=== PATIENT | male | born 1965 | race Caucasian/White ===

== ENCOUNTER 2016-10-07 07:11 | Inpatient (IN) | payer OTHER ==
[~2016-10-07] VITALS: Ht 185.4 cm; Wt 116.4 kg
[~2016-10-07 07:11] MED LIST: AMOX500C3 PO; ASCO10003 PO; ASPCH81 PO; ATOR10TA88 PO; CHOL100010 PO; CLON1TAB3 PO; EMPA1TAB; FLUO20CA20 PO; GLC/500 PO; INSUINJ4 SC; LISI20TA55 PO; METO50TA16 PO; MULT-506 PO
[2016-10-07] MEDS ORDERED: EMPA1TAB3 PO (07:39)
[2016-10-07] MEDS ORDERED: METF-382 PO (07:39)
[2016-10-07] MEDS ORDERED: ASPI81TA28 PO (07:39)
[2016-10-07] MEDS ORDERED: CHOL20009 PO (07:39)
[2016-10-07] MEDS ORDERED: INSDGI SC ×2 (07:39)
--- NOTE | 2016-10-07 07:47 | EMERGENCY ROOM VISIT NOTE ---
History Report prepared by Betzy: John Paul Bennett Under the Supervision of: Dr. Elizabeth Boudreaux M.D. First contact with patient: 07:31 Chief Complaint: INFECTION Stated Complaint: WEAK,LIGHTHEADED,LEFT GREAT TOE ULCER Nursing Triage Summary: Left great toe, open, draining since last night. c/o feeling weak this morning. History of Present Illness The patient is a 51 year old male with a history of diabetes who presents to the Emergency Room with complaints of a persistent draining wound of the left great toe since last night. The patient has also been febrile. The patient felt sluggish and weak when he woke up this morning. The generalized weakness became worse when he was at work this morning. The patient has a history of diabetic neuropathy. He has been diabetic for 12 years. He does follow up with wound care. The patient 's BSG was 109 when he woke up around 0530 this morning. The patient notes that he recently changed his medications, which has helped control his BSG. He was last on antibiotics in early August for an ulcer. The patient also has a history of hypertension. He is not a smoker. Source of History: patient Onset: last night Position: toe(s) (left great toe) Quality: other (draining wound) Timing: other (persistent) Associated Symptoms: + fevers, + weakness Review of Systems See HPI for pertinent positives & negatives. A total of 10 systems reviewed and were otherwise negative. Past Medical & Surgical Medical Problems: (1) Anxiety (2) Chest pain (3) Diabetes mellitus type II, uncontrolled (4) Dyslipidemia (5) Great toe amputation status (6) HTN (hypertension) (7) Wound cellulitis Family History Cancer Diabetes mellitus FH: heart attack Gallbladder disease Heart disease Hypertension Social History Smoking Status: Never Smoker Alcohol Use: occasionally Drug Use: none Marital Status: , in relationship Housing Status: lives with family, lives with significant other Occupation Status: employed Current/Historical Medications Scheduled Ascorbic Acid (Vitamin C), 1,000 MG PO DAILY Aspirin (Aspirin Ec), 81 MG PO DAILY Atorvastatin (Lipitor), 10 MG PO DAILY Cholecalciferol (Vitamin D), 2,000 INTER.UNIT PO DAILY Clonazepam (Klonopin), 1 MG PO HS PRN Cyanocobalamin (Vitamin B-12), 500 MCG PO QAM Empagliflozin (Jardiance), 25 MG PO DAILY Fluoxetine Hcl (Pmdd) (Fluoxetine), 20 MG PO QAM Insulin Glargine (Lantus), 42 UNITS SC QAM Insulin Glargine (Lantus), 38 UNITS SC QPM Lisinopril/Hctz (Prinzide 20-25MG), 1 TAB PO QAM Metformin Ext Rel (Glucophage Ext Rel), 1,000 MG PO BID Metoprolol Succinate (Metoprolol Succinate ER), 50 MG PO BID Multivitamin (Multivitamin), 1 TAB PO QAM Sulfamethoxazole-Trimethoprim (Smz-Tmp Ds), 1 TAB PO Q12 Allergies Coded Allergies: Peanut (Verified Allergy, Severe, ANAPHYLAXIS, 10/07/16) Physical Exam Vital Signs Date Time Temp Pulse Resp B/P Pulse Ox O2 Delivery O2 Flow Rate FiO2 10/07/16 10:28 37.9 82 18 119/73 96 Room Air 10/07/16 08:54 92 10/07/16 08:52 38.1 89 18 107/59 97 Room Air 10/07/16 07:15 38.3 98 18 124/75 98 Room Air Physical Exam Vital signs reviewed. General: Generally well-appearing male, in no significant distress. HEENT: No scleral icterus, PERRLA, neck supple. Atraumatic. Cardiovascular: Regular rate and rhythm, no extra sounds. Pulmonary: Clear to auscultation bilaterally, normal work of breathing. Abdomen: Soft, nontender, nondistended, positive bowel sounds. Musculoskeletal: Amputated right great toe. Left great toe with cellulitis over the nail bed, split callous to the dorsal surface of the toe with minimal drainage and some bleeding. Neurologic: Patient awake alert and oriented x 3 Skin: Warm, dry. Changes as above. Medical Decision & Procedures ER Provider Diagnostic Interpretation: X-ray results as stated below per interpretation by me and the radiologist: CHEST ONE VIEW PORTABLE CLINICAL HISTORY: Fever. COMPARISON STUDY: Chest radiograph December 04, 2015. FINDINGS: Lung volumes are normal. There is no pneumothorax or pleural effusion. Cardiac size is normal. Mediastinal contours are normal. There is no evidence of pulmonary edema. The appearance of the chest is unchanged. IMPRESSION: No acute cardiopulmonary findings. Electronically signed by: Matt Chua M.D. 10/07/2016 8:36 AM Dictated Date/Time: 10/07/2016 8:35 AM LEFT FOOT MIN 3 VIEWS ROUTINE CLINICAL HISTORY: Left great toe diabetic ulcer. Fever. COMPARISON: None. FINDINGS: The tarsometatarsal joints are intact. There is moderate soft tissue swelling of the medial aspect of the left great toe, greatest at the level of the interphalangeal joint. Soft tissue irregularity suggests an ulcer. There is no radiographic evidence of osteomyelitis within the left foot. Mild arthritis is noted within multiple articulations. IMPRESSION: Soft tissue swelling with an ulcer of the left great toe. No radiographic evidence of osteomyelitis. Electronically signed by: Matt Chua M.D. 10/07/2016 8:40 AM Dictated Date/Time: 10/07/2016 8:36 AM Laboratory Results Test 10/07/16 08:40 10/07/16 08:44 Erythrocyte Sedimentation Rate 21 mm/hr (0-14) Prothrombin Time 11.0 SECONDS (9.0-12.0) Prothromb Time International Ratio 1.0 (0.9-1.1) Magnesium Level 2.1 mg/dl (1.8-2.4) Total Bilirubin 1.5 mg/dl (0.2-1) Direct Bilirubin 0.3 mg/dl (0-0.2) Aspartate Amino Transf (AST/SGOT) 16 U/L (15-37) Alanine Aminotransferase (ALT/SGPT) 24 U/L (12-78) Alkaline Phosphatase 88 U/L (45-117) Total Protein 7.7 gm/dl (6.4-8.2) Albumin 3.8 gm/dl (3.4-5.0) Hepatitis C Antibody Screen NEG (NEG) Bedside Lactic Acid Venous 1.45 mmol/L (0.90-1.70) Date/Time Source Procedure Growth Status 10/07/16 08:50 Blood Blood Culture - Final NO GROWTH Complete 10/07/16 08:19 Drainage-Deep Toe Left 1 Gram Stain - Final Complete 10/07/16 08:19 Wound Culture - Final Staphylococcus Aureus Complete Laboratory results per my review. Medications Administered Medications (Trade) Dose Ordered Sig/Esther Route Start Time Stop Time Status Last Admin Dose Admin Sodium Chloride 1,000 ml @ 125 mls/hr Q8H STAT IV 10/07/16 08:11 10/07/16 14:13 DC 10/07/16 09:33 125 MLS/HR Sodium Chloride 500 ml @ 999 mls/hr Q31M STAT IV 10/07/16 08:11 10/07/16 08:41 DC 10/07/16 08:54 999 MLS/HR Vancomycin HCl/ Sodium Chloride (Vancomycin Inj/ Nss 500ml) 556 ml @ 200 mls/hr ONE STAT IV 10/07/16 08:11 10/07/16 10:57 DC 10/07/16 09:33 200 MLS/HR Piperacillin Sod/ Tazobactam Sod (Zosyn Iv) 4.5 gm NOW STAT IV 10/07/16 08:11 10/07/16 08:16 DC 10/07/16 08:56 4.5 GM Acetaminophen (Tylenol Tab) 650 mg NOW STAT PO 10/07/16 09:47 10/07/16 09:49 DC 10/07/16 09:55 650 MG ED Course 0740: Past medical records reviewed. The patient was evaluated in room B12b. A complete history and physical examination was performed. 0745: Incision & drainage performed. Please see procedural note above. 0811: Zosyn 4.5 gm IV, Vancomycin Hcl 2800 mg / NSS 556 ml @ 200 mls/hr, NSS 500 ml @ 999 mls/hr, NSS 1000 ml @ 125 mls/hr. 0946: Discussed the case with Marie Kay PA-C, [facility]. The patient will be evaluated. 0947: Tylenol 650 mg PO. Medical Decision Differential diagnosis: Cellulitis, osteomyelitis, diabetic wound, influenza, pneumonia, DVT, gangrene. This pt was evaluated and appeared to be in no distress. IV access was obtained and lab work was drawn. PT was placed on the personnel analyst. He was medicated with NSS, IV vancomycin and zosyn. A wound cx was sent after the wound was slightly unroofed. XR reveals no osteomyelitis at this time, although pt has elevated WBC, sed rate and CRP. Pt was d/w the hospitalist service for further management. Pt is aware of plan and agrees. Consults Time Called: [phone] Consulting Physician: Marie Kay PA-C, [facility] Returned Call: [phone]: Discussed the case with Marie Kay PA-C, [facility]. The patient will be evaluated. Impression Primary Impression: Diabetic foot ulcer Additional Impressions: Cellulitis Fever Scribe Attestation The scribe's documentation has been prepared under my direction and personally reviewed by me in its entirety. I confirm that the note above accurately reflects all work, treatment, procedures, and medical decision making performed by me. Departure Information Dispostion Being Evaluated By Hospitalist Prescriptions Cyanocobalamin (Vitamin B-12) 500 Mcg Tab 500 MCG PO QAM, #100 TAB Prov: Vernon Mora MD 10/10/16 Sulfamethoxazole-Trimethoprim (SMZ-TMP DS) 1 Tab Tab 1 TAB PO Q12, #26 TAB 0 Refills Prov: Vernon Mora MD 10/10/16 Referrals Giorgi Bernal D.OGosia (PCP) Patient Instructions My [facility] Problem Qualifiers Primary Impression: Diabetic foot ulcer Diabetes mellitus type: type 2 Laterality: left Qualified Codes: E11.621 - Type 2 diabetes mellitus with foot ulcer; L97.529 - Non-pressure chronic ulcer of other part of left foot with unspecified severity Additional Impressions: Cellulitis Site of cellulitis: extremity Site of cellulitis of extremity: lower extremity Laterality: left Qualified Codes: L03.116 - Cellulitis of left lower limb Fever Fever type: due to other condition Qualified Codes: R50.81 - Fever presenting with conditions classified elsewhere
[2016-10-07] MEDS ORDERED: VANCOMYCIN INJ 2,800 MG in SODIUM CHLORIDE 0.9% 500ML 500 ML IV STA (08:11)
[2016-10-07] MEDS ORDERED: SODIUM CHLORIDE 0.9% 1000ML 1,000 ML IV STA (08:11)
[2016-10-07] MEDS ORDERED: SODIUM CHLORIDE 0.9% 500ML 500 ML IV STA (08:11)
[2016-10-07] MEDS ORDERED: PIPERACILLIN/TAZOBACTAM 4.5 GM/100ML D5W IV STA (08:11)
--- NOTE | 2016-10-07 08:37 | DIAGNOSTIC IMAGING REPORT ---
CHEST ONE VIEW PORTABLE CLINICAL HISTORY: Fever. COMPARISON STUDY: Chest radiograph December 04, 2015. FINDINGS: Lung volumes are normal. There is no pneumothorax or pleural effusion. Cardiac size is normal. Mediastinal contours are normal. There is no evidence of pulmonary edema. The appearance of the chest is unchanged. IMPRESSION: No acute cardiopulmonary findings. Electronically signed by: Matt Chua M.D. 10/07/2016 8:36 AM Dictated Date/Time: 10/07/2016 8:35 AM
--- NOTE | 2016-10-07 08:41 | DIAGNOSTIC IMAGING REPORT ---
LEFT FOOT MIN 3 VIEWS ROUTINE CLINICAL HISTORY: Left great toe diabetic ulcer. Fever. COMPARISON: None. FINDINGS: The tarsometatarsal joints are intact. There is moderate soft tissue swelling of the medial aspect of the left great toe, greatest at the level of the interphalangeal joint. Soft tissue irregularity suggests an ulcer. There is no radiographic evidence of osteomyelitis within the left foot. Mild arthritis is noted within multiple articulations. IMPRESSION: Soft tissue swelling with an ulcer of the left great toe. No radiographic evidence of osteomyelitis. Electronically signed by: Matt Chua M.D. 10/07/2016 8:40 AM Dictated Date/Time: 10/07/2016 8:36 AM
[2016-10-07 09:12] LABS: BASO % 0.1 %; BASO ABS # 0.02 K/uL (0-0.2); COMPLETE YES; EOS % 0.1 %; HEMATOCRIT 43.5 % (42-52); IG% 0.3 %; LYMPH % 4.8 %; LYMPH ABS # 0.71 K/uL (1.2-3.4); MEAN CELL VOLUME 88.1 fL (80-100); MEAN CORPUSCULAR HEMOGLOBIN 32.2 pg (25-34); MEAN CORPUSCULAR HGB CONC 36.6 g/dl (32-36); MEAN PLATELET VOLUME 10.3 fL (7.4-10.4); MONO % 8.6 %; NEUT % 86.1 %; PLATELET COUNT 189 K/uL (130-400); RED BLOOD COUNT 4.94 M/uL (4.7-6.1); WHITE BLOOD COUNT 14.94 K/uL (4.8-10.8)
[2016-10-07 09:26] LABS: ALT/SGPT 24 U/L (12-78); BLOOD UREA NITROGEN 17 mg/dl (7-18); BUN/CREATININE RATIO 13.8 (10-20); C-REACTIVE PROTEIN 3.74 mg/dl (0-0.29); CARBON DIOXIDE 27 mmol/L (21-32); CHLORIDE 100 mmol/L (98-107); GLUCOSE 153 mg/dl (70-99); MAGNESIUM 2.1 mg/dl (1.8-2.4); POTASSIUM 3.6 mmol/L (3.5-5.1); SODIUM 136 mmol/L (136-145)
[2016-10-07 09:29] LABS: ALKALINE PHOSPHATASE 88 U/L (45-117); AST/SGOT 16 U/L (15-37)
[2016-10-07] MEDS ORDERED: ACETAMINOPHEN 325 MG TAB PO STA (09:47)
[2016-10-07] MEDS ORDERED: CONSULT PHARMACY STA (11:40)
[2016-10-07] MEDS ORDERED: NITROGLYCERIN 0.4 MG SL PER TAB CHARGE SL PRN (11:45)
[2016-10-07] MEDS ORDERED: ACETAMINOPHEN 325 MG TAB PO PRN (11:45)
[2016-10-07] MEDS ORDERED: GLUCAGON FOR INJ 1 MG VIAL SQ PRN (11:45)
[2016-10-07] MEDS ORDERED: DEXTROSE 50% 50 ML SYR IV PRN (11:45)
[2016-10-07] MEDS ORDERED: GLUCOSE 40% GEL 15 GM TUBE PO PRN (11:45)
[2016-10-07] MEDS ORDERED: GLUCOSE 10 TABS/TUBE PO PRN (11:45)
[2016-10-07] MEDS ORDERED: ONDANSETRON INJ 2 MG/ML 2 ML VIAL IV PRN (11:45)
[2016-10-07] MEDS ORDERED: METFTAB PO (11:51)
[2016-10-07] MEDS ORDERED: TPRSR50 PO (11:51)
[2016-10-07] MEDS ORDERED: VANCOMYCIN CONSULT ACTIVE PRN (12:00)
[2016-10-07] MEDS ORDERED: PIPERACILL/TAZOBAC CONSULT ACTIVE PRN (12:15)
[2016-10-07] MEDS ORDERED: ASPIRIN 81 MG CHEW PO STA (12:26)
[2016-10-07] MEDS ORDERED: MULTI-VITAMIN INFUSION INJ 10 ML, THIAMINE HCL INJ 100 MG, FoLIC ACID INJ 1 MG in SODIU... IV ONE (12:29)
[2016-10-07] MEDS ORDERED: THIAMINE HCL 100 MG TAB PO STA (12:29)
[2016-10-07] MEDS ORDERED: LORAZEPAM 1 MG TAB PO PRN (12:30)
[2016-10-07] MEDS ORDERED: GABAPENTIN 600 MG TAB PO SCH (12:30)
--- NOTE | 2016-10-07 14:33 | History and Physical ---
History & Physical Date & Time of Service: Oct 07, 2016 at 14:12 Chief Complaint: Weak,Lightheaded,Left Great Toe Ulcer Primary Care Physician: Giorgi Bernal D.OGosia History of Present Illness Source: patient This is a 51 y/o male with PMhx of Uncontrolled DM2, HTN, Dyslipidemia and other problems as outlined below who presents to the ED c/o worsening L great toe wound x 1 day. Pt reports that 1 week ago he noticed that the skin split on the bottom surface of his L great toe. He has been applying gauze to the area to prevent infection however last night he noticed clear drainage from the toe with spreading erythema. Pt was on abx in July for a wound on the L great toe that healed well per patient. This morning pt tried going to work however he developed central chest "pressure" that did not radiate anywhere. The pressure seemed to be worse with ambulation. Sxs were assoc with fatigue, exertional SOB and lightheadedness/dizziness. Pt has never had chest pain like that before. He has a +FmHx of Father with ME in his 50s and mother with ME in her 60s. Pt denies fever/chills, diaphoresis, palpitations, wheezing, abd pain, N/V, bowel or bladder issues, LE edema or calf pain. In the ED, pt is febrile with leukocytosis>14k. L foot xray is negative for osteo. CXR is negative. Pt is currently chest pain free and will be admitted for further evaluation and treatment. Past Medical/Surgical History Medical Problems: (1) Anxiety Status: Chronic (2) Diabetes mellitus type II, uncontrolled Status: Chronic (3) Dyslipidemia Status: Chronic (4) Great toe amputation status Permanent Comment: amputation R great toe 2* osteomyelitis 2014 Status: Resolved (5) HTN (hypertension) Status: Chronic Family History Cancer Diabetes mellitus FH: heart attack Gallbladder disease Heart disease Hypertension Social History Smoking Status: Never Smoker Alcohol Use: occasionally Drug Use: none Marital Status: , in relationship Housing status: lives with family Occupational Status: employed Multi-Drug Resistant Organisms History of MDRO: No Allergies Coded Allergies: Peanut (Verified Allergy, Severe, ANAPHYLAXIS, 10/07/16) Home Medications Scheduled Ascorbic Acid (Vitamin C), 1,000 MG PO DAILY Aspirin (Aspirin Ec), 81 MG PO DAILY Atorvastatin (Lipitor), 10 MG PO DAILY Cholecalciferol (Vitamin D), 2,000 INTER.UNIT PO DAILY Clonazepam (Klonopin), 1 MG PO HS PRN Empagliflozin (Jardiance), 25 MG PO DAILY Fluoxetine Hcl (Pmdd) (Fluoxetine), 20 MG PO QAM Insulin Glargine (Lantus), 42 UNITS SC QAM Insulin Glargine (Lantus), 38 UNITS SC QPM Lisinopril/Hctz (Prinzide 20-25MG), 1 TAB PO QAM Metformin Ext Rel (Glucophage Ext Rel), 1,000 MG PO BID Metoprolol Succinate (Metoprolol Succinate ER), 50 MG PO BID Multivitamin (Multivitamin), 1 TAB PO QAM Review of Systems Constitutional: + fatigue, No chills, No fever, No sweats, No weakness Eyes: No diplopia, No worsening of vision ENT: No hearing loss Respiratory: + dyspnea on exertion, + shortness of breath, No cough, No dyspnea at rest Cardiovascular: + chest pain, No claudication, No edema, No palpitations Abdomen: No GI bleeding, No constipation, No diarrhea, No nausea, No pain, No vomiting Musculoskeletal: No calf pain, No swelling Genitourinary - Male: No dysuria Neurologic: No weakness Psychiatric: No depression symptoms Endocrine: + fatigue Hematologic / Lymphatic: No abnormal bleeding/bruising Integumentary: + new/changing skin lesions Physical Exam Vital Signs Date Time Temp Pulse Resp B/P Pulse Ox O2 Delivery O2 Flow Rate FiO2 10/07/16 14:05 90 10/07/16 13:17 86 19 108/60 95 Room Air 10/07/16 11:49 88 10/07/16 10:28 37.9 82 18 119/73 96 Room Air 10/07/16 08:54 92 10/07/16 08:52 38.1 89 18 107/59 97 Room Air 10/07/16 07:15 38.3 98 18 124/75 98 Room Air General Appearance: WD/WN, no apparent distress, + pertinent finding (Pt is laying comfortably in bed ) Head: normocephalic, atraumatic Eyes: normal inspection ENT: hearing grossly normal Neck: supple Respiratory/Chest: chest non-tender, lungs clear, normal breath sounds, no respiratory distress Cardiovascular: regular rate, rhythm, no edema, no murmur Abdomen/GI: normal bowel sounds, non tender, soft Back: normal inspection Extremities/Musculoskelatal: normal inspection, no calf tenderness, no pedal edema Neurologic/Psych: alert, normal mood/affect, oriented x 3 Skin: warm/dry, + pertinent finding (open wound to plantar surface L great toe with clear drainage and surrounding erythema ) Diagnostics Laboratory Results Results Past 24 Hours Test 10/07/16 08:40 10/07/16 08:44 Range/Units White Blood Count 14.94 4.8-10.8 K/uL Red Blood Count 4.94 4.7-6.1 M/uL Hemoglobin 15.9 14.0-18.0 g/dL Hematocrit 43.5 42-52 % Mean Corpuscular Volume 88.1 80-100 fL Mean Corpuscular Hemoglobin 32.2 25-34 pg Mean Corpuscular Hemoglobin Concent 36.6 32-36 g/dl Platelet Count 189 130-400 K/uL Mean Platelet Volume 10.3 7.4-10.4 fL Neutrophils (%) (Auto) 86.1 % Lymphocytes (%) (Auto) 4.8 % Monocytes (%) (Auto) 8.6 % Eosinophils (%) (Auto) 0.1 % Basophils (%) (Auto) 0.1 % Neutrophils # (Auto) 12.85 1.4-6.5 K/uL Lymphocytes # (Auto) 0.71 1.2-3.4 K/uL Monocytes # (Auto) 1.29 0.11-0.59 K/uL Eosinophils # (Auto) 0.02 0-0.5 K/uL Basophils # (Auto) 0.02 0-0.2 K/uL RDW Standard Deviation 42.5 36.4-46.3 fL RDW Coefficient of Variation 13.3 11.5-14.5 % Immature Granulocyte % (Auto) 0.3 % Immature Granulocyte # (Auto) 0.05 0.00-0.02 K/uL Erythrocyte Sedimentation Rate 21 0-14 mm/hr Sodium Level 136 136-145 mmol/L Potassium Level 3.6 3.5-5.1 mmol/L Chloride Level 100 98-107 mmol/L Carbon Dioxide Level 27 21-32 mmol/L Anion Gap 9.0 3-11 mmol/L Blood Urea Nitrogen 17 7-18 mg/dl Creatinine 1.20 0.60-1.40 mg/dl Est Creatinine Clear Calc Drug Dose 98.7 ml/min Estimated GFR () 80.7 Estimated GFR (Non- 69.6 BUN/Creatinine Ratio 13.8 10-20 Random Glucose 153 70-99 mg/dl Calcium Level 9.0 8.5-10.1 mg/dl Magnesium Level 2.1 1.8-2.4 mg/dl Total Bilirubin 1.5 0.2-1 mg/dl Direct Bilirubin 0.3 0-0.2 mg/dl Aspartate Amino Transf (AST/SGOT) 16 15-37 U/L Alanine Aminotransferase (ALT/SGPT) 24 12-78 U/L Alkaline Phosphatase 88 45-117 U/L Troponin I < 0.015 0-0.045 ng/ml C-Reactive Protein 3.74 0-0.29 mg/dl Total Protein 7.7 6.4-8.2 gm/dl Albumin 3.8 3.4-5.0 gm/dl Bedside Lactic Acid Venous 1.45 0.90-1.70 mmol/L Microbiology Results 10/07/16 Blood Culture, Received Pending 10/07/16 Blood Culture, Received Pending 10/07/16 Gram Stain, Received Pending 10/07/16 Wound Culture, Received Pending Diagnostic Radiology CXR IMPRESSION: No acute cardiopulmonary findings. L FOOT XRAY IMPRESSION: Soft tissue swelling with an ulcer of the left great toe. No radiographic evidence of osteomyelitis. Impression Assessment and Plan CHEST PAIN R/O ACS pt presented with 2 hours of central chest pressure assoc with exertional SOB -admit to telemetry -RFs include +FmHx, Uncontrolled DM 2, HTN, dyslipidemia -obtain STAT EKG; repeat EKG PRN chest pain and in AM -Initial troponin is negative; continue to monitor with serial cardiac enzymes q6h -obtain echo to r/o cardiac wall motion abnormalities -cont ASA -consider cardiology consult if enzymes trending up -pt is currently chest pain free -continue to monitor WOUND L GREAT TOE -pt is febrile with leukocytosis >14k; POC lactic acid 1.45 -L foot xray negative for osteo; will check L foot MRI for further evaluation -blood and wound cx-pending -start gentle IVF, Zosyn and Vanco -consult wound care nurse -consult wound care provider, Dr. Garza -monitor INSULIN DEPENDENT DM 2 -recent A1C 9.4; recheck in AM -hold Jardiance and metformin -cont Lantus -start ISS -monitor BSG AC HS ANXIETY -stable -cont Prozac and Klonopin PRN HTN -stable -cont lisinopril-HCTZ and metoprolol -monitor DYSLIPIDEMIA -cont statin DVT PROPHYLAXIS -subq heparin CODE STATUS -FULL CODE DISPO -Pt seen in collaboration with Dr. Franco. Please see his addendum for further details. Thanks! ADDENDING ADDENDUM: Patient was seen and examined by me and I agree with the assessment and plan per provider above with whom I discussed the case. In addition, we will order an MRI of the L foot with the h/o chronic osteo and recent wound infection in that same area just one month ago. Agree with consulting wound provider-appreciate input--agree with ruling out ACS in this diabetic patient with known neuropathy who may present atypically. DSE ordered for am. I&D was performed in the Er with cultures pending. Agree with covering broadly at this time. Alexia Franco, DO (Hospitalist) VTE Prophylaxis VTE Risk Assessment Done? Y/N: Yes Risk Level: Moderate
--- NOTE | 2016-10-07 14:49 | DIAGNOSTIC IMAGING REPORT ---
CHEST 2 VIEWS ROUTINE CLINICAL HISTORY: Weakness. Dizziness. COMPARISON STUDY: Chest radiograph December 04, 2015 and October 07, 2016. FINDINGS: Lung volumes are normal. There is no consolidation. There is no pneumothorax or pleural effusion. Cardiac size is normal. Mediastinal contours are normal. Linear left lower lung opacity likely reflects atelectasis. IMPRESSION: No acute cardiopulmonary findings. Electronically signed by: Matt Chua M.D. 10/07/2016 2:48 PM Dictated Date/Time: 10/07/2016 2:46 PM
[2016-10-07 15:21] VITALS: BMI 34.8
--- NOTE | 2016-10-07 15:49 | Pharmacy Progress Note ---
Pharmacy Antibiotic Consult Date of Service: Oct 07, 2016. Pharmacy Dosing Scope Pharmacy is consulted to initiate Vancomycin IV dosing therapy, order appropriate labs and adjust drug dose/frequency. Subjective The patient is a 51 year old male admitted on 10/07/16 with Cellulitis like wound to his Left first toe. He has a history of uncontrolled diabetes and osteomyelitis in his R foot with toe amputation. Marie Jung in conjunction with Dr. Franco will cover with broad spectrum antibiotics and rule out osteomyelitis at this point. Objective Height (Feet): 6 Height (Inches): 1.00 Weight (Kilograms): 119.800 Lab Results (24hrs): Laboratory Tests Test 10/07/16 08:40 BUN/Creatinine Ratio 13.8 Blood Urea Nitrogen 17 mg/dl Creatinine 1.20 mg/dl White Blood Count 14.94 K/uL Red Blood Count 4.94 M/uL Hemoglobin 15.9 g/dL Hematocrit 43.5 % Mean Corpuscular Volume 88.1 fL Mean Corpuscular Hemoglobin 32.2 pg Mean Corpuscular Hemoglobin Concent 36.6 g/dl Platelet Count 189 K/uL Mean Platelet Volume 10.3 fL Neutrophils (%) (Auto) 86.1 % Lymphocytes (%) (Auto) 4.8 % Monocytes (%) (Auto) 8.6 % Eosinophils (%) (Auto) 0.1 % Basophils (%) (Auto) 0.1 % Neutrophils # (Auto) 12.85 K/uL Lymphocytes # (Auto) 0.71 K/uL Monocytes # (Auto) 1.29 K/uL Eosinophils # (Auto) 0.02 K/uL Basophils # (Auto) 0.02 K/uL Micro Results: Item Value Date Time Blood Culture Received 10/07/16 0850 Blood Pending Blood Culture Received 10/07/16 0840 Blood Pending Gram Stain Received 10/07/16 0819 Drainage-Deep Toe Left 1 Pending Assessment & Plan Loading dose: Vancomycin 2800mg IV X 1 dose then: Vancomycin 1500mg (~13mg/kg) IV every 10 hours. I estimated his half life at around 8 hours given current renal function. If he returns to baseline he could probably tolerate every 8 hour dosing. He will be prone to accumulation given his bariatric nature. I will check a trough level prior to 0200 dose on 10/09/16. Goal trough level estimate: between 15-20 mcg/mL. Pharmacy will continue to follow and will adjust dose/frequency as necessary. Thank you
[2016-10-07] MEDS ORDERED: GADAVIST IV PRN (16:30)
--- NOTE | 2016-10-07 16:53 | DIAGNOSTIC IMAGING REPORT ---
MRI left foot LEFT LOWER EXT NON JOINT COMBO CLINICAL HISTORY: Infection cellulitis. Osteomyelitis. TECHNIQUE: Multiaxial MRI acquisition combination COMPARISON STUDY: Routine films same date FINDINGS: Suboptimal exam due to patient motion. Soft tissue inflammatory change about the great toe and to a lesser extent remaining soft tissues of the foot. Moderate degenerative change. No well-defined evidence for bone marrow replacing process. No evidence specifically for osteomyelitis. No evidence for abscess or drainable collection. All major ligamentous structures are intact. IMPRESSION: 1.. Mild/moderate soft tissue cellulitis about the great toe and to a lesser extent remaining soft tissue structures of the foot 2. No evidence for osteomyelitis. 3. No evidence for drainable abscess or collection Electronically signed by: Bubba Ascencio M.D. 10/07/2016 4:52 PM Dictated Date/Time: 10/07/2016 4:49 PM
[2016-10-07 17:13] VITALS: BP 130/76; PULSE 80; TEMP 38.1; O2SAT 97
[2016-10-07] MEDS: SODIUM CHLORIDE 0.9% 1000ML 1,000 ML IV SCH (17:19)
[2016-10-07 18:00] VITALS: O2SAT 97
[2016-10-07] MEDS: INSULIN ASPART 100 UNITS/ML 3 ML PEN SC SCH ×2 (18:00→20:42)
[2016-10-07] MEDS: PIPERACILL/TAZOBAC IV 4.5 GM in DEXTROSE 5% 100ML 100 ML IV SCH (18:49)
[2016-10-07] MEDS: CLONAZEPAM 1 MG TAB PO SCH (20:40)
[2016-10-07] MEDS: METOPROLOL SUCC 50MG EXT REL TAB PO SCH (20:41)
[2016-10-07] MEDS: HEPARIN SOD 5000 UNIT/0.5 ML CARP SQ SCH (20:47)
[2016-10-07] MEDS ORDERED: INSULIN GLARGINE SOLOSTAR 100 UNITS/ML 3 ML PEN SC SCH (21:00)
[2016-10-07] MEDS: VANCOMYCIN INJ 1,500 MG in SODIUM CHLORIDE 0.9% 500ML 500 ML IV SCH (22:23)
[2016-10-07 23:50] VITALS: BP 116/73; PULSE 73; TEMP 37.1; O2SAT 96
[2016-10-08] VITALS (10 sets, daily range): BP systolic 113–124; BP diastolic 63–74; PULSE 60–87; TEMP 36.8–37.6; O2SAT 95–98; Ht 185.4 cm; Wt 116.4 kg
[2016-10-08] MEDS: PIPERACILL/TAZOBAC IV 4.5 GM in DEXTROSE 5% 100ML 100 ML IV SCH ×3 (01:05→17:50)
[2016-10-08] MEDS: HEPARIN SOD 5000 UNIT/0.5 ML CARP SQ SCH ×3 (06:00→21:54)
[2016-10-08] MEDS: VANCOMYCIN INJ 1,500 MG in SODIUM CHLORIDE 0.9% 500ML 500 ML IV SCH ×3 (06:11→21:59)
[2016-10-08 06:37] LABS: ESTIMATED AVERAGE GLUCOSE 183 mg/dl; HA1C FLAG Normal (Normal)
[2016-10-08] MEDS: INSULIN ASPART 100 UNITS/ML 3 ML PEN SC SCH ×4 (07:00→21:53)
[2016-10-08] MEDS: SODIUM CHLORIDE 0.9% 1000ML 1,000 ML IV SCH ×2 (08:22→15:43)
[2016-10-08] MEDS: ASCORBIC ACID 500 MG TAB PO SCH (08:23)
[2016-10-08] MEDS: ASPIRIN 81 MG ECTAB PO SCH (08:23)
[2016-10-08] MEDS: FLUOXETINE HCL 20 MG CAP PO SCH (08:23)
[2016-10-08] MEDS: METOPROLOL SUCC 50MG EXT REL TAB PO SCH ×2 (08:24→21:50)
[2016-10-08] MEDS: LISINOPRIL/HCTZ 20/25MG TAB PO SCH (08:24)
[2016-10-08] MEDS: ATORVASTATIN 10 MG TAB PO SCH (08:24)
[2016-10-08] MEDS: MULTIVITAMIN TAB PO SCH (08:24)
[2016-10-08] MEDS: CHOLECALCIFEROL 1000 INTER.UNIT TAB PO SCH (08:25)
[2016-10-08] MEDS: INSULIN GLARGINE SOLOSTAR 100 UNITS/ML 3 ML PEN SC SCH (08:27)
[2016-10-08] MEDS ORDERED: DEXTROSE 50% 50 ML SYR IV SCH (10:00)
[2016-10-08] MEDS ORDERED: PHARMACY GLYCEMIC MGMT CONSULT PRN (10:00)
[2016-10-08] MEDS ORDERED: ATROPINE SULFATE 0.1 MG/ML 5ML SYR ONE (10:07)
[2016-10-08] MEDS ORDERED: DOBUTamine HCL 12.5 MG/ML 20 ML VIAL ONE (10:07)
[2016-10-08] MEDS ORDERED: METOPROLOL TARTRATE 1 MG/ML VIAL ONE (10:07)
--- NOTE | 2016-10-08 11:30 | DOBUTAMINE ECHO ---
*NOTICE TO RECEIVING DEMOCRAT AGENCY This information is strictly Confidential and protected under [place] law. [place] law prohibits you from making any further disclosure of this information unless further disclosure is expressly permitted by the written consent of the person to whom it pertains or is authorized by law. A general authorization for the release of medical or other information is not sufficient for this purpose. Hospital accepts no responsibility if the information is made available to any other person, INCLUDING THE PATIENT. Interpretation Summary * Name: ELEAZAR RIVERA Study Date: 10/08/2016 10:10 AM BP: 123/69 mmHg * Patient Location: 2\S\S239\S\1 HR: 65 * : 1965 (M/d/yyyy) Gender: Male Height: 71 in * Age: 51 yrs Ethnicity: CA Weight: 264 lb * Ordering Physician: Alexia Franco * Referring Physician: Self, Referred * Performed By: Tanja Espinoza RCS * * Reason For Study: CHEST PAIN * BSA: 2.4 m2 * STRESS STUDY: Normal pharmacologic stress echocardiogram. No echocardiographic or ECG evidence of myocardial ischemia having achieved heart rate adequate for diagnostic purposes. Procedure Details * DOBUTAMINE ECHO, CPT#58448 * ECHO COLOR FLOW, CPT #57882 * ECHO DOPPLER, CPT #32922 Left Ventricle * The left ventricle is normal in size. * There is normal left ventricular wall thickness. * Ejection Fraction = 60-65%. * The left ventricular wall motion is normal at rest. Right Ventricle * The right ventricle is normal size. Atria * The left atrial size is normal. * Right atrial size is normal. * The interatrial septum is intact with no evidence for an atrial septal defect. Mitral Valve * The mitral valve is normal in structure and function. Tricuspid Valve * The tricuspid valve is normal in structure and function. Aortic Valve * The aortic valve is normal in structure and function. Pulmonic Valve * The pulmonic valve is not well seen, but is grossly normal. Great Vessels * The aortic root and proximal ascending aorta are normal sized. Pericardium * There is no pericardial effusion. Stress Parameters * Baseline ECG was essentially normal. No symptoms were noted. * The stress ECG response was normal * The stress portion of this study was personally supervised by the undersigned interpreting physician. * Rest heart rate was '65' BPM. * Rest blood pressure was '123/69' * Maximum heart rate achieved was 144 bpm. * Maximum heart rate was 85 % of maximum age-predicted heart rate. * Maximum blood pressure was '214/86' * Maximum Dobutamine infusion rate was '50' mcg/kg/min. * A total of 1.0 mg of intravenous Atropine was used to supplement Dobutamine for heart rate response. * Dobutamine infusion was terminated due to end of protocol/maximum medication doses * A total of 0 mg of IV Metoprolol was administered to reverse Dobutamine-induced tachycardia. Right Ventricle * The right ventricular wall motion is normal. MMode 2D Measurements and Calculations Ao root diam 4.1 cm Ao root area 13.0 cm\S\2 ACS 1.9 cm LA dimension 2.7 cm LA/Ao 0.66 LVAd ap4 38.7 cm\S\2 LVLd ap4 9.1 cm EDV(MOD-sp4) 133.0 ml EDV(sp4-el) 139.3 ml LVAs ap4 20.9 cm\S\2 LVLs ap4 7.2 cm ESV(MOD-sp4) 51.6 ml ESV(sp4-el) 51.5 ml EF(MOD-sp4) 61.2 % EF(sp4-el) 63.0 % LVAd ap2 35.2 cm\S\2 LVLd ap2 8.6 cm EDV(MOD-sp2) 119.4 ml EDV(sp2-el) 121.3 ml LVAs ap2 19.1 cm\S\2 LVLs ap2 6.9 cm ESV(MOD-sp2) 44.7 ml ESV(sp2-el) 45.1 ml EF(MOD-sp2) 62.5 % EF(sp2-el) 62.9 % LVLd %diff -5.36 % EDV(MOD-bp) 126.7 ml LVLs %diff -4.23 % ESV(MOD-bp) 48.1 ml EF(MOD-bp) 62.1 % SV(MOD-sp4) 81.4 ml SI(MOD-sp4) 34.3 ml/m\S\2 SV(MOD-sp2) 74.7 ml SI(MOD-sp2) 31.5 ml/m\S\2 SV(MOD-bp) 78.6 ml SI(MOD-bp) 33.1 ml/m\S\2 SV(sp4-el) 87.8 ml SI(sp4-el) 37.0 ml/m\S\2 SV(sp2-el) 76.3 ml SI(sp2-el) 32.1 ml/m\S\2 Doppler Measurements and Calculations MV E max varinder 115.4 cm/sec MV A max varinder 88.4 cm/sec MV E/A 1.3 MV P1/2t max varinder 127.1 cm/sec MV P1/2t 113.9 msec MVA(P1/2t) 1.9 cm\S\2 MV dec slope 326.9 cm/sec\S\2 MV dec time 0.28 sec Ao V2 max 158.8 cm/sec Ao max PG 10.1 mmHg Ao max PG (full) 2.5 mmHg LV V1 max PG 7.6 mmHg LV V1 max 138.0 cm/sec MR max varinder 475.6 cm/sec MR max PG 90.5 mmHg PA V2 max 105.9 cm/sec PA max PG 4.5 mmHg TR max varinder 239.8 cm/sec
--- NOTE | 2016-10-08 11:36 | CONSULTATION REPORT ---
DATE OF CONSULTATION: 10/08/2016 SUBJECTIVE: The patient is seen today for evaluation of a recurrent ulceration on the left great toe. The patient was recently seen in the wound clinic and discharge back on September 01 of this year. The patient states that approximately 2 days ago he developed discomfort, redness, swelling, drainage and fever associated with an ulceration on the right great toe. The patient denies any known trauma. The patient has not obtained any new footwear. The patient states that today he is feeling better, with no fever, chills or night sweats. The patient states the redness has subsided. The patient denies any chest pain, shortness of breath, abdominal discomfort, nausea or vomiting. The patient denies any other systemic complaints. OBJECTIVE: VITAL SIGNS: The patient's vital signs were reviewed and found to be unremarkable. The patient is afebrile. GENERAL: The patient is lying in the hospital bed in no acute distress, alert and cooperative throughout the examination. EXTREMITIES: Reveals the presence of an ulceration on the medial aspect of the posterior left great toe. There is any opening with some bloody drainage present. There is undermining noted circumferentially. There is some swelling of the toe along with erythema, although isolated to the toe region. There is no odor present. No significant pain to palpation. 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 This site did require debridement and with the patient's permission this was performed with a combination of scissors, forceps and a #5 curette. Undermining skin, underlying central slough and some subcutaneous tissue was removed. Bleeding did occur, but was controlled with direct pressure and silver nitrate. The site will be dressed with Aquacel Ag and gauze. An orthotic consult was placed with Jens Gonzales. The patient does have a Cam boot and will bring the Cam boot in for evaluation prior to discharge for ongoing offloading issues. Culture was obtained in the Emergency Department and the results are not available at this time. An MRI was also performed yesterday which showed no evidence of any osteomyelitis. The patient will be followed up in the outpatient clinic next week. This represented an excisional debridement of less than 20 square cm. The post-debridement measurements were 3 x 4.5 x 0.1 cm.
[2016-10-08 11:39] LABS: BASO % 0.2 %; BASO ABS # 0.02 K/uL (0-0.2); EOS % 0.5 %; HEMATOCRIT 39.9 % (42-52); IG% 0.3 %; LYMPH % 14.6 %; LYMPH ABS # 1.67 K/uL (1.2-3.4); MEAN CELL VOLUME 88.9 fL (80-100); MEAN CORPUSCULAR HEMOGLOBIN 31.8 pg (25-34); MEAN PLATELET VOLUME 9.9 fL (7.4-10.4); MONO % 10.6 %; NEUT % 73.8 %; PLATELET COUNT 162 K/uL (130-400); RED BLOOD COUNT 4.49 M/uL (4.7-6.1); WHITE BLOOD COUNT 11.42 K/uL (4.8-10.8)
[2016-10-08 12:00] LABS: BUN/CREATININE RATIO 12.1 (10-20); CALCIUM 8.4 mg/dl (8.5-10.1); POTASSIUM 3.9 mmol/L (3.5-5.1)
[2016-10-08 12:11] LABS: COMPLETE YES; MEAN CORPUSCULAR HGB CONC 35.8 g/dl (32-36)
--- NOTE | 2016-10-08 13:44 | Pharmacy Progress Note ---
Glycemic Control Intl Consult Date of Service Oct 08, 2016. Scope Glycemic Pharmacist consulted by Dr Mora on 10/08/16 for glycemic control and to write orders per [facility] inpatient glycemic control protocol Objective Weight (Kilograms): 118.200 Accuchecks BSG (last 24hrs): Test 10/07/16 17:21 10/07/16 20:41 10/08/16 07:06 10/08/16 11:10 Bedside Glucose 94 mg/dl (70-99) 143 mg/dl (70-99) 69 mg/dl (70-99) 94 mg/dl (70-99) Test 10/08/16 11:30 Random Glucose 87 mg/dl (70-99) Laboratory Data (last 24hrs) Test 10/08/16 05:33 10/08/16 11:30 Creatinine 1.00 mg/dl 1.00 mg/dl Hemoglobin A1c 8.0 % Anion Gap 9.0 mmol/L BUN/Creatinine Ratio 12.1 Blood Urea Nitrogen 12 mg/dl Potassium Level 3.9 mmol/L Sodium Level 140 mmol/L White Blood Count 11.42 K/uL Red Blood Count 4.49 M/uL Hemoglobin 14.3 g/dL Hematocrit 39.9 % Mean Corpuscular Volume 88.9 fL Mean Corpuscular Hemoglobin 31.8 pg Mean Corpuscular Hemoglobin Concent 35.8 g/dl Platelet Count 162 K/uL Mean Platelet Volume 9.9 fL Neutrophils (%) (Auto) 73.8 % Lymphocytes (%) (Auto) 14.6 % Monocytes (%) (Auto) 10.6 % Eosinophils (%) (Auto) 0.5 % Basophils (%) (Auto) 0.2 % Neutrophils # (Auto) 8.43 K/uL Lymphocytes # (Auto) 1.67 K/uL Monocytes # (Auto) 1.21 K/uL Eosinophils # (Auto) 0.06 K/uL Basophils # (Auto) 0.02 K/uL HbA1c Test 10/08/16 05:33 Hemoglobin A1c 8.0 %(4.5-5.6) H Recent Pertinent Medications Outpatient Anti-diabetic Regimen: * Lantus * 42 units SQ in the AM * 38 units SQ in the PM * Metformin ER 1000mg PO BID * Empagliflozin 25mg PO daily * A1c = 8 % 10/08/16 The patient is currently receiving: * Basal insulin: Lantus 42 units SQ q AM, Lantus 38 units SQ q PM * Correctional Insulin: NovoLog Correction per scale AC/HS Goal Range: Low 120 mg/dL - High 160 mg/dL Correction Factor: 30 mg/dL/unit * Prandial insulin: Per carb ratio of 1 unit per 12 grams CHO consumed * Oral Agents: none at this time Risk Factors for Insulin Resistance: * Steroids: none * Infection: cellulitis of the left great toe - current ABX include vancomycin and piperacillin/tazobactam * Pressors: none * IVF: NSS * Recent Surgery: n/a * Diet: NPO this AM for stress test, now with T2DM diet ordered Assessment & Plan ASSESSMENT: * ADA & AACE recommend a goal blood sugar range 140-180 mg/dl for the majority of critically ill & non-critically ill patients. However, more stringent targets may be selected in individual cases. 10/08/16 * Mr. Doyle is a 51 y/o type 2 diabetic who follows with [facility] for diabetes management. * Recently, the patient was increased on his empagliflozin (10mg -->25mg) and his Lantus was re-distributed to give larger doses in the morning. * A1c has improved since July 2016 from 9.4%-->8.0% this month * At home, Mr. Doyle is maintained on basal insulin and two oral medications. The basal insulin likely covers both of this basal and prandial needs and may be too aggressive in addition to NovoLog while admitted. * BSG this AM after receiving Lantus dose last evening was 69mg/dL - provider was made aware. * NPO this AM for stress test --> AM Lantus given around 08:30 * repeat BSG ~11:30 87mg/dL (remains below goal range for inpatient) * continue to hold basal insulin at this time since diet has just been resumed and only 17g of CHO were consumed at lunch * NovoLog will continue AC and HS in case BSGs begin to rise * may need to become more aggressive with parameters as BSGs climb/Lantus is held * Estimate a 50/50 ratio of basal/bolus needs based on a total daily dose of ~ 80u/day * Lantus 20u BID, NovoLog CF: 20mg/dL/unit, CR: 1:7 PLAN FOR INPATIENT GLYCEMIC CONTROL: * Lantus on hold at this time (AM dose should last ~24 hours until AM BSG assessed) * resume at reduced dose once BSGs within goal range * NovoLog continues AC and HS * Correction factor 30mg/dL/unit * Carb ratio: 1 unit per 12g of CHO consumed * Goal: 120-160mg/dL * A1c current * added to discharge instructions * Please note that the plan above was derived based on current level of insulin resistance and hospital stress. These recommendations are appropriate for inpatient admission only. Plan of care upon discharge will need to be reassessed to avoid potential outpatient hypo/hyperglycemia. Thank you.
--- NOTE | 2016-10-08 18:02 | Progress Note ---
Internal Med Progress Note Date of Service: Oct 08, 2016. Provider Documentation: SUBJECTIVE: Patient is sitting in his bed in no apparent distress.Denies any chest pain/ pressure or SOB. Still feels numbness in the toes. OBJECTIVE: Vital Signs-as noted below Examination General Appearance: WD/WN, no apparent distress, Pt is sitting comfortably in bed Head: normocephalic, atraumatic Eyes: normal inspection ENT: hearing grossly normal. Ears, Nose & Throat are normal looking. Neck: supple, Midline trachea, No JVD Respiratory/Chest: chest non-tender, lungs clear, normal breath sounds, no respiratory distress Cardiovascular: regular rate, rhythm, no edema, no murmur Abdomen/GI: normal bowel sounds, non tender, soft Back: normal inspection Extremities/Musculoskeletal: normal inspection, no calf tenderness, no pedal edema Neurologic/Psych: alert, normal mood/affect, oriented x 3 Skin: warm/dry, open wound to plantar surface Left great toe with clear drainage and surrounding erythema Lab data as noted below. ASSESSMENT & PLAN: MRI left foot LEFT LOWER EXT NON JOINT COMBO CLINICAL HISTORY: Infection cellulitis. Osteomyelitis. TECHNIQUE: Multiaxial MRI acquisition combination COMPARISON STUDY: Routine films same date FINDINGS: Suboptimal exam due to patient motion. Soft tissue inflammatory change about the great toe and to a lesser extent remaining soft tissues of the foot. Moderate degenerative change. No well-defined evidence for bone marrow replacing process. No evidence specifically for osteomyelitis. No evidence for abscess or drainable collection. All major ligamentous structures are intact. IMPRESSION: 1.. Mild/moderate soft tissue cellulitis about the great toe and to a lesser extent remaining soft tissue structures of the foot 2. No evidence for osteomyelitis. 3. No evidence for drainable abscess or collection Chest Pain: Patient presented with 2 hours of central chest pressure assoc with exertional SOB. Chest pain free now and is hemodynamically stable.Risk factors include +FmHx, Uncontrolled DM 2, HTN, dyslipidemia -Serial Troponin are negative -Continue Aspirin -Stress Echocardiogram is normal. STRESS STUDY: Normal pharmacologic stress echocardiogram. No echocardiographic or ECG evidence of myocardial ischemia having achieved heart rate adequate for diagnostic purposes. Wound Left Great Toe: Patient is febrile with leukocytosis >14k; POC lactic acid 1.45 -Left foot X-Ray & MRI are negative for osteomyelitis -Blood cultures are negative so far Wound culture growing Staph. aureus and will follow susceptibility -Continue vancomycin & Zosyn for now -Noted consult by Dr. Garza. Thanks for input. Type II Diabetes: HbA1c is 8.0. Not well controlled. -Holding Jardiance and metformin -Continue Lantus -Monitor BS and cover as per sliding scale. History Anxiety: Stable. -continue Prozac and Klonopin PRN Hypertension: BP has been stable. -Continue lisinopril-HCTZ and metoprolol -Monitor BP Dyslipidemia: Continue Statin DVT Prophylaxis: Sq Heparin. Code Status : FULL CODE Disposition: Discharge once is clinically stable. Vital Signs: Date Time Temp Pulse Resp B/P Pulse Ox O2 Delivery O2 Flow Rate FiO2 10/09/16 16:27 96 Room Air 10/09/16 15:46 37.0 58 20 123/73 96 Room Air 10/09/16 08:00 Room Air 10/09/16 07:50 36.9 60 18 124/75 96 Room Air 10/09/16 01:18 Room Air 10/08/16 23:53 36.8 60 18 124/63 96 Room Air 10/08/16 22:00 60 16 120/72 96 Room Air 10/08/16 19:45 96 Room Air 10/08/16 19:01 37.0 80 16 98 Lab Results: Results Past 24 Hours Test 10/08/16 20:50 10/09/16 05:36 10/09/16 07:41 10/09/16 11:00 Range/Units Bedside Glucose 169 125 233 70-99 mg/dl White Blood Count 7.90 4.8-10.8 K/uL Red Blood Count 4.54 4.7-6.1 M/uL Hemoglobin 14.3 14.0-18.0 g/dL Hematocrit 40.1 42-52 % Mean Corpuscular Volume 88.3 80-100 fL Mean Corpuscular Hemoglobin 31.5 25-34 pg Mean Corpuscular Hemoglobin Concent 35.7 32-36 g/dl Platelet Count 167 130-400 K/uL Mean Platelet Volume 10.2 7.4-10.4 fL Neutrophils (%) (Auto) 56.6 % Lymphocytes (%) (Auto) 31.5 % Monocytes (%) (Auto) 9.2 % Eosinophils (%) (Auto) 1.9 % Basophils (%) (Auto) 0.4 % Neutrophils # (Auto) 4.47 1.4-6.5 K/uL Lymphocytes # (Auto) 2.49 1.2-3.4 K/uL Monocytes # (Auto) 0.73 0.11-0.59 K/uL Eosinophils # (Auto) 0.15 0-0.5 K/uL Basophils # (Auto) 0.03 0-0.2 K/uL RDW Standard Deviation 42.7 36.4-46.3 fL RDW Coefficient of Variation 13.3 11.5-14.5 % Immature Granulocyte % (Auto) 0.4 % Immature Granulocyte # (Auto) 0.03 0.00-0.02 K/uL Sodium Level 140 136-145 mmol/L Potassium Level 3.7 3.5-5.1 mmol/L Chloride Level 105 98-107 mmol/L Carbon Dioxide Level 26 21-32 mmol/L Anion Gap 9.0 3-11 mmol/L Blood Urea Nitrogen 12 7-18 mg/dl Creatinine 0.99 0.60-1.40 mg/dl Est Creatinine Clear Calc Drug Dose 117.9 ml/min Estimated GFR () 101.8 Estimated GFR (Non- 87.8 BUN/Creatinine Ratio 12.6 10-20 Random Glucose 123 70-99 mg/dl Calcium Level 8.3 8.5-10.1 mg/dl C-Reactive Protein 6.78 0-0.29 mg/dl Vitamin B12 Level 301 211-911 pg/mL Folate 18.57 >5.38 ng/mL Vancomycin Level Trough 18.2 SEE COMMENT mcg/ml Test 10/09/16 16:02 Range/Units Bedside Glucose 125 70-99 mg/dl
[2016-10-08] MEDS: CLONAZEPAM 1 MG TAB PO SCH (21:49)
[2016-10-09] MEDS: PIPERACILL/TAZOBAC IV 4.5 GM in DEXTROSE 5% 100ML 100 ML IV SCH ×2 (00:46→08:12)
[2016-10-09] MEDS ORDERED: VANCOMYCIN TROUGH SCH ×2 (01:30→05:30)
[2016-10-09] MEDS: SODIUM CHLORIDE 0.9% 1000ML 1,000 ML IV SCH ×2 (04:00→17:19)
[2016-10-09 05:58] LABS: BASO % 0.4 %; BASO ABS # 0.03 K/uL (0-0.2); COMPLETE YES; EOS % 1.9 %; HEMATOCRIT 40.1 % (42-52); IG% 0.4 %; LYMPH % 31.5 %; LYMPH ABS # 2.49 K/uL (1.2-3.4); MEAN CELL VOLUME 88.3 fL (80-100); MEAN CORPUSCULAR HEMOGLOBIN 31.5 pg (25-34); MEAN CORPUSCULAR HGB CONC 35.7 g/dl (32-36); MEAN PLATELET VOLUME 10.2 fL (7.4-10.4); MONO % 9.2 %; NEUT % 56.6 %; PLATELET COUNT 167 K/uL (130-400); RED BLOOD COUNT 4.54 M/uL (4.7-6.1)
[2016-10-09] MEDS: VANCOMYCIN INJ 1,500 MG in SODIUM CHLORIDE 0.9% 500ML 500 ML IV SCH ×2 (06:16→14:24)
[2016-10-09] MEDS: HEPARIN SOD 5000 UNIT/0.5 ML CARP SQ SCH ×3 (06:18→21:12)
[2016-10-09 06:25] LABS: BUN/CREATININE RATIO 12.6 (10-20); CALCIUM 8.3 mg/dl (8.5-10.1); CREATININE 0.99 mg/dl (0.60-1.40); POTASSIUM 3.7 mmol/L (3.5-5.1)
[2016-10-09 06:27] LABS: C-REACTIVE PROTEIN 6.78 mg/dl (0-0.29)
[2016-10-09 07:50] VITALS: BP 124/75; PULSE 60; TEMP 36.9; O2SAT 96
[2016-10-09] MEDS: ASPIRIN 81 MG ECTAB PO SCH (08:12)
[2016-10-09] MEDS: MULTIVITAMIN TAB PO SCH (08:13)
[2016-10-09] MEDS: LISINOPRIL/HCTZ 20/25MG TAB PO SCH (08:13)
[2016-10-09] MEDS: ATORVASTATIN 10 MG TAB PO SCH (08:13)
[2016-10-09] MEDS: METOPROLOL SUCC 50MG EXT REL TAB PO SCH ×2 (08:14→21:06)
[2016-10-09] MEDS: FLUOXETINE HCL 20 MG CAP PO SCH (08:14)
[2016-10-09] MEDS: CHOLECALCIFEROL 1000 INTER.UNIT TAB PO SCH (08:14)
[2016-10-09] MEDS: ASCORBIC ACID 500 MG TAB PO SCH (08:14)
[2016-10-09] MEDS: INSULIN ASPART 100 UNITS/ML 3 ML PEN SC SCH ×4 (08:19→21:12)
[2016-10-09] MEDS: INSULIN GLARGINE SOLOSTAR 100 UNITS/ML 3 ML PEN SC SCH (08:22)
--- NOTE | 2016-10-09 10:12 | Pharmacy Progress Note ---
Glycemic Control: Progress Nt Date of Service Oct 09, 2016. Scope Glycemic Pharmacist consulted by Dr Mora on 10/08/16 for glycemic control and to write orders per [facility] inpatient glycemic control protocol. Objective Accuchecks BSG (last 24hrs): Test 10/08/16 11:10 10/08/16 11:30 10/08/16 16:14 10/08/16 20:50 Bedside Glucose 94 mg/dl (70-99) 115 mg/dl (70-99) 169 mg/dl (70-99) Random Glucose 87 mg/dl (70-99) Test 10/09/16 05:36 10/09/16 07:41 Random Glucose 123 mg/dl (70-99) Bedside Glucose 125 mg/dl (70-99) Laboratory Data (last 24hrs) Test 10/08/16 11:30 10/09/16 05:36 Anion Gap 9.0 mmol/L 9.0 mmol/L BUN/Creatinine Ratio 12.1 12.6 Blood Urea Nitrogen 12 mg/dl 12 mg/dl Creatinine 1.00 mg/dl 0.99 mg/dl Potassium Level 3.9 mmol/L 3.7 mmol/L Sodium Level 140 mmol/L 140 mmol/L White Blood Count 11.42 K/uL 7.90 K/uL Red Blood Count 4.49 M/uL 4.54 M/uL Hemoglobin 14.3 g/dL 14.3 g/dL Hematocrit 39.9 % 40.1 % Mean Corpuscular Volume 88.9 fL 88.3 fL Mean Corpuscular Hemoglobin 31.8 pg 31.5 pg Mean Corpuscular Hemoglobin Concent 35.8 g/dl 35.7 g/dl Platelet Count 162 K/uL 167 K/uL Mean Platelet Volume 9.9 fL 10.2 fL Neutrophils (%) (Auto) 73.8 % 56.6 % Lymphocytes (%) (Auto) 14.6 % 31.5 % Monocytes (%) (Auto) 10.6 % 9.2 % Eosinophils (%) (Auto) 0.5 % 1.9 % Basophils (%) (Auto) 0.2 % 0.4 % Neutrophils # (Auto) 8.43 K/uL 4.47 K/uL Lymphocytes # (Auto) 1.67 K/uL 2.49 K/uL Monocytes # (Auto) 1.21 K/uL 0.73 K/uL Eosinophils # (Auto) 0.06 K/uL 0.15 K/uL Basophils # (Auto) 0.02 K/uL 0.03 K/uL HbA1c: Test 10/08/16 05:33 Hemoglobin A1c 8.0 % (4.5-5.6) H Recent Pertinent Medications Outpatient Anti-diabetic Regimen: * Lantus * 42 units SQ in the AM * 38 units SQ in the PM * Metformin ER 1000mg PO BID * Empagliflozin 25mg PO daily * A1c = 8 % 10/08/16 The patient is currently receiving: * Basal insulin: Lantus 42 units SQ q AM, Lantus 38 units SQ q PM - AM dose received then placed on hold * Correctional Insulin: NovoLog Correction per scale AC/HS Goal Range: Low 120 mg/dL - High 160 mg/dL Correction Factor: 30 mg/dL/unit * Prandial insulin: Per carb ratio of 1 unit per 12 grams CHO consumed * Oral Agents: none at this time Risk Factors for Insulin Resistance: * Infection: cellulitis of the left great toe - current ABX include vancomycin and piperacillin/tazobactam * IVF: NSS@ 80cc/hr * Diet:T2DM Assessment & Plan ASSESSMENT: 10/08/16 * Mr. Doyle is a 51 y/o type 2 diabetic who follows with [facility] for diabetes management. * Recently, the patient was increased on his empagliflozin (10mg -->25mg) and his Lantus was re-distributed to give larger doses in the morning. * A1c has improved since July 2016 from 9.4%-->8.0% this month * At home, Mr. Doyle is maintained on basal insulin and two oral medications. The basal insulin likely covers both of this basal and prandial needs and may be too aggressive in addition to NovoLog while admitted. * BSG this AM after receiving Lantus dose last evening was 69mg/dL - provider was made aware. * NPO this AM for stress test --> AM Lantus given around 08:30 * repeat BSG ~11:30 87mg/dL (remains below goal range for inpatient) * continue to hold basal insulin at this time since diet has just been resumed and only 17g of CHO were consumed at lunch * NovoLog will continue AC and HS in case BSGs begin to rise * may need to become more aggressive with parameters as BSGs climb/Lantus is held * Estimate a 50/50 ratio of basal/bolus needs based on a total daily dose of ~ 80u/day * Lantus 20u BID, NovoLog CF: 20mg/dL/unit, CR: 1:7 10/09/16 * BSGs ranging 115-169mg/dL over the past 24 hours, patient only had 1 dose of Lantus yesterday, in the AM. I will restart this dose as patient did not have his PM dose last night and continue to hold PM dose, as patient only needs about half of his home Lantus dose as inpatient. * No further changes at this time necessary. * ADA & AACE recommend a goal blood sugar range 140-180 mg/dl for the majority of critically ill & non-critically ill patients. However, more stringent targets may be selected in individual cases. Goal 120-160mg/dL for patient's age and A1c. PLAN FOR INPATIENT GLYCEMIC CONTROL: * Resume Lantus 42 units SQ qAM (continue to hold PM dose at this time) * NovoLog continues AC and HS * Correction factor 30mg/dL/unit * Carb ratio: 1 unit per 12g of CHO consumed * Goal: 120-160mg/dL * A1c current * added to discharge instructions * Please note that the plan above was derived based on current level of insulin resistance and hospital stress. These recommendations are appropriate for inpatient admission only. Plan of care upon discharge will need to be reassessed to avoid potential outpatient hypo/hyperglycemia. Thank you.
[2016-10-09 15:46] VITALS: BP 123/73; PULSE 58; TEMP 37; O2SAT 96
--- NOTE | 2016-10-09 16:09 | Pharmacy Progress Note ---
Pharmacy Antibiotic Prog Note Date of Service: Oct 09, 2016. Subjective: The patient is currently receiving vancomycin 1500 mg IV every 8 hours. The patient is currently on day # 3 of IV therapy. Objective: Height (Feet): 6 Height (Inches): 1.00 Weight (Kilograms): 116.300 Levels: Item Value Date Time Vancomycin Level Trough 18.2 mcg/ml 10/09/16 0536 Lab Results (24hrs): Laboratory Tests Test 10/09/16 05:36 BUN/Creatinine Ratio 12.6 Blood Urea Nitrogen 12 mg/dl Creatinine 0.99 mg/dl White Blood Count 7.90 K/uL Red Blood Count 4.54 M/uL Hemoglobin 14.3 g/dL Hematocrit 40.1 % Mean Corpuscular Volume 88.3 fL Mean Corpuscular Hemoglobin 31.5 pg Mean Corpuscular Hemoglobin Concent 35.7 g/dl Platelet Count 167 K/uL Mean Platelet Volume 10.2 fL Neutrophils (%) (Auto) 56.6 % Lymphocytes (%) (Auto) 31.5 % Monocytes (%) (Auto) 9.2 % Eosinophils (%) (Auto) 1.9 % Basophils (%) (Auto) 0.4 % Neutrophils # (Auto) 4.47 K/uL Lymphocytes # (Auto) 2.49 K/uL Monocytes # (Auto) 0.73 K/uL Eosinophils # (Auto) 0.15 K/uL Basophils # (Auto) 0.03 K/uL Micro Results: RUN DATE: 10/09/16 [facility] LAB PAGE 1 RUN TIME: 1211 Specimen Inquiry PATIENT: ELEAZAR RIVERA LOC: [facility] U # : [id number] AGE/SX: 51/M ROOM: [facility] REG : 10/07/[address]: Vernon Mora MD : 1965 BED: 1 DIS : STATUS: ADM IN TLOC: SPEC #: [id number] ARVIN: 10/07/16 STATUS: COMP REQ #: [id number] RECD: 10/07/[address]: Elizabeth Boudreaux M.D. SOURCE: DRAIN-DEEP ENTR: 10/07/[address]: Giorgi Bernal , D.OGosia SPDESC: TOE L1 ORDERED: JOSE MOON/DB COMMENTS: Has Specimen Been Obtained/Collected? Y Procedure Result Verified Site GRAM STAIN Final 10/08/16-0943 RESULT FEW EPITHELIAL CELLS RARE WBCs SEEN MANY GRAM POSITIVE COCCI DEEP WOUND CULTURE Final 10/09/16-1211 Organism 1 STAPHYLOCOCCUS AUREUS QUANITY MANY SENS SENSITIVITY TO FOLLOW +MIXWOUND PLUS LOW COUNTS OF PROBABLE SKIN ALBINO 1. STAPHYLOCOCCUS AUREUS Target Route Dose RX AB Cost M.I.C. IQ ------ ----- ------ -- ------ -------- - ------ TRIMET/SULFA S <=0.5/ 9.5 * OXACILLIN S 0.5 VANCOMYCIN S 2 ERYTHROMYCIN R >4 TETRACYCLINE S <=4 CLINDAMYCIN S <=0.5 DAPTOMYCIN S <=0.5 S = SENSITIVE I = INTERMEDIATE R = RESISTANT Recent Pertinent Medications: Item Value Date Time Piperacillin Sod/ 115 ml @ 28.75 mls/hr 10/09/16 1600 Tazobactam Sod Q8H/IV 3.375 gm/Dextrose Assessment & Plan: This drug level: Therapeutic Change to vancomycin 1500 mg IV every 10 hours. (I am concerned that the patient could potentially accumulate given his body habitus and age. I decided to electively go down by 20% in order to prevent this. Also, his culture grew MSSA so a lower goal range is appropriate) Goal peak level estimate: between 35 - 40 mcg/mL. Goal trough level estimate: between 10 - 15 mcg/mL (cellulitis with MSSA). Trough has been ordered for: prior to 2000 dose. Pharmacy will continue to follow and will adjust dose/frequency as necessary. Thank you
[2016-10-09 16:27] VITALS: O2SAT 96
[2016-10-09] MEDS: PIPERACILL/TAZOBAC IV 3.375 GM in DEXTROSE 5% 100ML 100 ML IV SCH (17:19)
[2016-10-09] MEDS ORDERED: CYANOCOBALAMIN 1000 MCG/ML VIAL IM ONE (18:15)
--- NOTE | 2016-10-09 18:41 | Progress Note ---
Internal Med Progress Note Date of Service: Oct 09, 2016. Provider Documentation: SUBJECTIVE: Patient is sitting in his bed in no apparent distress.Denies any chest pain/ pressure or SOB. Still feels numbness in the toes. OBJECTIVE: Vital Signs-as noted below Examination General Appearance: WD/WN, no apparent distress, Pt is sitting comfortably in bed Head: normocephalic, atraumatic Eyes: normal inspection ENT: hearing grossly normal. Ears, Nose & Throat are normal looking. Neck: supple, Midline trachea, No JVD Respiratory/Chest: chest non-tender, lungs clear, normal breath sounds, no respiratory distress Cardiovascular: regular rate, rhythm, no edema, no murmur Abdomen/GI: normal bowel sounds, non tender, soft Back: normal inspection Extremities/Musculoskeletal: normal inspection, no calf tenderness, no pedal edema Neurologic/Psych: alert, normal mood/affect, oriented x 3 Skin: warm/dry, open wound to plantar surface Left great toe with clear drainage and surrounding erythema Lab data as noted below. ASSESSMENT & PLAN: DEEP WOUND CULTURE Final 10/09/16-1211 Organism 1 STAPHYLOCOCCUS AUREUS QUANITY MANY SENS SENSITIVITY TO FOLLOW +MIXWOUND PLUS LOW COUNTS OF PROBABLE SKIN ALBINO 1. STAPHYLOCOCCUS AUREUS Target Route Dose RX AB Cost M.I.C. IQ ------ ----- ------ -- ------ -------- - ------ TRIMET/SULFA S <=0.5/ 9.5 * OXACILLIN S 0.5 VANCOMYCIN S 2 ERYTHROMYCIN R >4 TETRACYCLINE S <=4 CLINDAMYCIN S <=0.5 DAPTOMYCIN S <=0.5 MRI left foot LEFT LOWER EXT NON JOINT COMBO CLINICAL HISTORY: Infection cellulitis. Osteomyelitis. TECHNIQUE: Multiaxial MRI acquisition combination COMPARISON STUDY: Routine films same date FINDINGS: Suboptimal exam due to patient motion. Soft tissue inflammatory change about the great toe and to a lesser extent remaining soft tissues of the foot. Moderate degenerative change. No well-defined evidence for bone marrow replacing process. No evidence specifically for osteomyelitis. No evidence for abscess or drainable collection. All major ligamentous structures are intact. IMPRESSION: 1.. Mild/moderate soft tissue cellulitis about the great toe and to a lesser extent remaining soft tissue structures of the foot 2. No evidence for osteomyelitis. 3. No evidence for drainable abscess or collection Chest Pain: Patient presented with 2 hours of central chest pressure assoc with exertional SOB. Chest pain free now and is hemodynamically stable.Risk factors include +FmHx, Uncontrolled DM 2, HTN, dyslipidemia -Serial Troponin are negative -Continue Aspirin -Stress Echocardiogram is normal. STRESS STUDY: Normal pharmacologic stress echocardiogram. No echocardiographic or ECG evidence of myocardial ischemia having achieved heart rate adequate for diagnostic purposes. Wound Left Great Toe: Patient is febrile with leukocytosis >14k; POC lactic acid 1.45 -Left foot X-Ray & MRI are negative for osteomyelitis -Blood cultures are negative so far Wound culture growing MSSA so have changed to PO Bactrim DS twice a day. -Stopped vancomycin & Zosyn -Noted consult by Dr. Garza. Thanks for input. Low B12 Level: Started supplementation Type II Diabetes: HbA1c is 8.0. Not well controlled. -Holding Jardiance and metformin -Continue Lantus -Monitor BS and cover as per sliding scale. -Requested consult with parent educator. History Anxiety: Stable. -continue Prozac and Klonopin PRN Hypertension: BP has been stable. -Continue lisinopril-HCTZ and metoprolol -Monitor BP Dyslipidemia: Continue Statin DVT Prophylaxis: Sq Heparin. Code Status : FULL CODE Disposition: Discharge home on 10/10/2016. Vital Signs: Date Time Temp Pulse Resp B/P Pulse Ox O2 Delivery O2 Flow Rate FiO2 10/09/16 16:27 96 Room Air 10/09/16 15:46 37.0 58 20 123/73 96 Room Air 10/09/16 08:00 Room Air 10/09/16 07:50 36.9 60 18 124/75 96 Room Air 10/09/16 01:18 Room Air 10/08/16 23:53 36.8 60 18 124/63 96 Room Air 10/08/16 22:00 60 16 120/72 96 Room Air 10/08/16 19:45 96 Room Air 10/08/16 19:01 37.0 80 16 98 Lab Results: Results Past 24 Hours Test 10/08/16 20:50 10/09/16 05:36 10/09/16 07:41 10/09/16 11:00 Range/Units Bedside Glucose 169 125 233 70-99 mg/dl White Blood Count 7.90 4.8-10.8 K/uL Red Blood Count 4.54 4.7-6.1 M/uL Hemoglobin 14.3 14.0-18.0 g/dL Hematocrit 40.1 42-52 % Mean Corpuscular Volume 88.3 80-100 fL Mean Corpuscular Hemoglobin 31.5 25-34 pg Mean Corpuscular Hemoglobin Concent 35.7 32-36 g/dl Platelet Count 167 130-400 K/uL Mean Platelet Volume 10.2 7.4-10.4 fL Neutrophils (%) (Auto) 56.6 % Lymphocytes (%) (Auto) 31.5 % Monocytes (%) (Auto) 9.2 % Eosinophils (%) (Auto) 1.9 % Basophils (%) (Auto) 0.4 % Neutrophils # (Auto) 4.47 1.4-6.5 K/uL Lymphocytes # (Auto) 2.49 1.2-3.4 K/uL Monocytes # (Auto) 0.73 0.11-0.59 K/uL Eosinophils # (Auto) 0.15 0-0.5 K/uL Basophils # (Auto) 0.03 0-0.2 K/uL RDW Standard Deviation 42.7 36.4-46.3 fL RDW Coefficient of Variation 13.3 11.5-14.5 % Immature Granulocyte % (Auto) 0.4 % Immature Granulocyte # (Auto) 0.03 0.00-0.02 K/uL Sodium Level 140 136-145 mmol/L Potassium Level 3.7 3.5-5.1 mmol/L Chloride Level 105 98-107 mmol/L Carbon Dioxide Level 26 21-32 mmol/L Anion Gap 9.0 3-11 mmol/L Blood Urea Nitrogen 12 7-18 mg/dl Creatinine 0.99 0.60-1.40 mg/dl Est Creatinine Clear Calc Drug Dose 117.9 ml/min Estimated GFR () 101.8 Estimated GFR (Non- 87.8 BUN/Creatinine Ratio 12.6 10-20 Random Glucose 123 70-99 mg/dl Calcium Level 8.3 8.5-10.1 mg/dl C-Reactive Protein 6.78 0-0.29 mg/dl Vitamin B12 Level 301 211-911 pg/mL Folate 18.57 >5.38 ng/mL Vancomycin Level Trough 18.2 SEE COMMENT mcg/ml Test 10/09/16 16:02 Range/Units Bedside Glucose 125 70-99 mg/dl
[2016-10-09] MEDS: CLONAZEPAM 1 MG TAB PO SCH (21:06)
[2016-10-09 21:13] VITALS: BP 150/86; PULSE 60
[2016-10-09] MEDS: SULFAMETHOXAZOLE/TRIMETHOPRIM DS 800/160MG TAB PO SCH (21:13)
[2016-10-09 23:20] VITALS: BP 122/71; PULSE 57; TEMP 36.9; O2SAT 96
[2016-10-10] MEDS ORDERED: VANCOMYCIN INJ 1,500 MG in SODIUM CHLORIDE 0.9% 500ML 500 ML IV SCH ×2
[2016-10-10] MEDS: PIPERACILL/TAZOBAC IV 3.375 GM in DEXTROSE 5% 100ML 100 ML IV SCH ×2 (00:16→07:59)
[2016-10-10] MEDS: SODIUM CHLORIDE 0.9% 1000ML 1,000 ML IV SCH (04:28)
[2016-10-10] MEDS: HEPARIN SOD 5000 UNIT/0.5 ML CARP SQ SCH (06:07)
[2016-10-10 06:28] LABS: HEMATOCRIT 39.9 % (42-52); MEAN CELL VOLUME 86.9 fL (80-100); MEAN CORPUSCULAR HEMOGLOBIN 31.6 pg (25-34); MEAN CORPUSCULAR HGB CONC 36.3 g/dl (32-36); MEAN PLATELET VOLUME 9.9 fL (7.4-10.4); PLATELET COUNT 185 K/uL (130-400); RED BLOOD COUNT 4.59 M/uL (4.7-6.1); WHITE BLOOD COUNT 7.28 K/uL (4.8-10.8)
[2016-10-10 07:01] LABS: BUN/CREATININE RATIO 12.2 (10-20); CALCIUM 8.3 mg/dl (8.5-10.1); POTASSIUM 3.5 mmol/L (3.5-5.1)
[2016-10-10 07:43] VITALS: BP 162/90; PULSE 59; TEMP 36.8; O2SAT 98
[2016-10-10] MEDS ORDERED: CYANOCOBALAMIN 1000 MCG/ML VIAL IM SCH (08:00)
[2016-10-10] MEDS: INSULIN ASPART 100 UNITS/ML 3 ML PEN SC SCH (08:29)
[2016-10-10] MEDS: ASPIRIN 81 MG ECTAB PO SCH (08:35)
[2016-10-10] MEDS: ATORVASTATIN 10 MG TAB PO SCH (08:37)
[2016-10-10] MEDS: MULTIVITAMIN TAB PO SCH (08:38)
[2016-10-10] MEDS: LISINOPRIL/HCTZ 20/25MG TAB PO SCH (08:39)
[2016-10-10] MEDS: FLUOXETINE HCL 20 MG CAP PO SCH (08:40)
[2016-10-10] MEDS: SULFAMETHOXAZOLE/TRIMETHOPRIM DS 800/160MG TAB PO SCH (08:42)
[2016-10-10] MEDS: ASCORBIC ACID 500 MG TAB PO SCH (08:45)
[2016-10-10] MEDS: CHOLECALCIFEROL 1000 INTER.UNIT TAB PO SCH (08:46)
[2016-10-10 08:47] VITALS: PULSE 64
[2016-10-10] MEDS: METOPROLOL SUCC 50MG EXT REL TAB PO SCH (08:49)
[2016-10-10] MEDS: INSULIN GLARGINE SOLOSTAR 100 UNITS/ML 3 ML PEN SC SCH (09:11)
--- NOTE | 2016-10-10 09:13 | Pharmacy Progress Note ---
Glycemic Control: Progress Nt Date of Service Oct 10, 2016. Scope Glycemic Pharmacist consulted by Dr Mora on 10/08/16 for glycemic control and to write orders per [facility] inpatient glycemic control protocol. Objective Accuchecks BSG (last 24hrs): Test 10/09/16 11:00 10/09/16 16:02 10/10/16 06:06 10/10/16 07:56 Bedside Glucose 233 mg/dl (70-99) 125 mg/dl (70-99) 130 mg/dl (70-99) Random Glucose 107 mg/dl (70-99) Laboratory Data (last 24hrs) Test 10/10/16 06:06 Anion Gap 7.0 mmol/L BUN/Creatinine Ratio 12.2 Blood Urea Nitrogen 12 mg/dl Creatinine 1.00 mg/dl Potassium Level 3.5 mmol/L Sodium Level 141 mmol/L White Blood Count 7.28 K/uL HbA1c: Test 10/08/16 05:33 Hemoglobin A1c 8.0 % (4.5-5.6) H Recent Pertinent Medications Outpatient Anti-diabetic Regimen: * Empagliflozin 25mg PO daily * Lantus 42 units Q AM + 38 units Q PM * Metformin XR 1000mg PO BID * A1c = 8.0 % 10/08/16 The patient is currently receiving: * Basal insulin: Lantus 42 units SQ Q AM * Correctional Insulin: Novolog Correction per scale ACHS Goal Range: Low 120 mg/dL - High 160 mg/dL Correction Factor: 30 mg/dL/unit * Prandial insulin: Per carb ratio of 1 unit per 12 grams CHO consumed * Oral Agents: None currently Risk Factors for Insulin Resistance: * Infection: L great toe wound/cellulitis; receiving Bactrim DS PO and Zosyn IV * Diet: ordered T2DM diet and tolerating well per carb counts Assessment & Plan ASSESSMENT: 10/10/16 * Glycemic control remains acceptable; BSGs have ranged 107-233 over the last 24 hrs and only one BSG was greater than 180 * Fasting BSG 107-130 this AM with 42 units of Lantus on board; he requires much less basal insulin this hospitalization vs out-pt regimen * 2 of 3 post-prandial BSGs well controlled yesterday using current Novolog dosing parameters * No changes will be made today, but BSG pattern will be followed closely PLAN FOR INPATIENT GLYCEMIC CONTROL: * Continuing Lantus 42 units SQ Q AM * Continuing correction factor of 30 mg/dl/unit * Continuing carb ratio of 1 unit per 12 grams CHO consumed * Continuing goal range of Low 120 mg/dL - High 160 mg/dL * Please note that the plan above was derived based on current level of insulin resistance and hospital stress. These recommendations are appropriate for inpatient admission only. Plan of care upon discharge will need to be reassessed to avoid potential outpatient hypo/hyperglycemia. Thank you.
[2016-10-10 09:59] VITALS: O2SAT 98
--- NOTE | 2016-10-10 10:01 | Progress Note ---
Internal Med Progress Note Date of Service: Oct 10, 2016. Provider Documentation: SUBJECTIVE: Patient is sitting in his bed in no apparent distress.Denies any chest pain/ pressure or SOB. Still feels numbness in the toes.Denies any new change or complaint. OBJECTIVE: Vital Signs-as noted below Examination General Appearance: WD/WN, no apparent distress, Pt is sitting comfortably in bed Head: normocephalic, atraumatic Eyes: normal inspection ENT: hearing grossly normal. Ears, Nose & Throat are normal looking. Neck: supple, Midline trachea, No JVD Respiratory/Chest: chest non-tender, lungs clear, normal breath sounds, no respiratory distress Cardiovascular: regular rate, rhythm, no edema, no murmur Abdomen/GI: normal bowel sounds, non tender, soft Back: normal inspection Extremities/Musculoskeletal: normal inspection, no calf tenderness, no pedal edema Neurologic/Psych: alert, normal mood/affect, oriented x 3 Skin: warm/dry, open wound to plantar surface Left great toe with clear drainage and surrounding erythema Lab data as noted below. ASSESSMENT & PLAN: DEEP WOUND CULTURE Final 10/09/16-1211 Organism 1 STAPHYLOCOCCUS AUREUS QUANITY MANY SENS SENSITIVITY TO FOLLOW +MIXWOUND PLUS LOW COUNTS OF PROBABLE SKIN ALBINO 1. STAPHYLOCOCCUS AUREUS Target Route Dose RX AB Cost M.I.C. IQ ------ ----- ------ -- ------ -------- - ------ TRIMET/SULFA S <=0.5/ 9.5 * OXACILLIN S 0.5 VANCOMYCIN S 2 ERYTHROMYCIN R >4 TETRACYCLINE S <=4 CLINDAMYCIN S <=0.5 DAPTOMYCIN S <=0.5 MRI left foot LEFT LOWER EXT NON JOINT COMBO CLINICAL HISTORY: Infection cellulitis. Osteomyelitis. TECHNIQUE: Multiaxial MRI acquisition combination COMPARISON STUDY: Routine films same date FINDINGS: Suboptimal exam due to patient motion. Soft tissue inflammatory change about the great toe and to a lesser extent remaining soft tissues of the foot. Moderate degenerative change. No well-defined evidence for bone marrow replacing process. No evidence specifically for osteomyelitis. No evidence for abscess or drainable collection. All major ligamentous structures are intact. IMPRESSION: 1.. Mild/moderate soft tissue cellulitis about the great toe and to a lesser extent remaining soft tissue structures of the foot 2. No evidence for osteomyelitis. 3. No evidence for drainable abscess or collection Chest Pain: Patient presented with 2 hours of central chest pressure assoc with exertional SOB. Chest pain free now and is hemodynamically stable.Risk factors include +FmHx, Uncontrolled DM 2, HTN, dyslipidemia -Serial Troponin are negative -Continue Aspirin -Stress Echocardiogram is normal. STRESS STUDY: Normal pharmacologic stress echocardiogram. No echocardiographic or ECG evidence of myocardial ischemia having achieved heart rate adequate for diagnostic purposes. Wound Left Great Toe: Patient is febrile with leukocytosis >14k; POC lactic acid 1.45 -Left foot X-Ray & MRI are negative for osteomyelitis -Blood cultures are negative so far Wound culture growing MSSA so have changed to PO Bactrim DS twice a day for total 14 days. -Stopped vancomycin & Zosyn -Noted consult by Dr. Garza. Thanks for input. Low B12 Level: Started supplementation Type II Diabetes: HbA1c is 8.0. Not well controlled. -Holding Jardiance and metformin -Continue Lantus -Monitor BS and cover as per sliding scale. -Requested consult with certified adaptive physical educator. History Anxiety: Stable. -continue Prozac and Klonopin PRN Hypertension: BP has been stable. -Continue lisinopril-HCTZ and metoprolol -Monitor BP Dyslipidemia: Continue Statin DVT Prophylaxis: Sq Heparin. Code Status : FULL CODE Disposition: Discharge home later today. Follow up with PCP within one week. PCP office will be contacting the patient as I could not get an appointment from scheduling staff. Follow up with Wound Clinic in the next 2-3 days. Vital Signs: Date Time Temp Pulse Resp B/P Pulse Ox O2 Delivery O2 Flow Rate FiO2 10/10/16 08:47 64 10/10/16 08:00 Room Air 10/10/16 07:43 36.8 59 16 162/90 98 Room Air 10/10/16 00:00 Room Air 10/09/16 23:20 36.9 57 16 122/71 96 Room Air 10/09/16 21:13 60 150/86 10/09/16 16:27 96 Room Air 10/09/16 15:46 37.0 58 20 123/73 96 Room Air Lab Results: Results Past 24 Hours Test 10/09/16 11:00 10/09/16 16:02 10/10/16 06:06 10/10/16 07:56 Range/Units Bedside Glucose 233 125 130 70-99 mg/dl White Blood Count 7.28 4.8-10.8 K/uL Red Blood Count 4.59 4.7-6.1 M/uL Hemoglobin 14.5 14.0-18.0 g/dL Hematocrit 39.9 42-52 % Mean Corpuscular Volume 86.9 80-100 fL Mean Corpuscular Hemoglobin 31.6 25-34 pg Mean Corpuscular Hemoglobin Concent 36.3 32-36 g/dl RDW Standard Deviation 41.4 36.4-46.3 fL RDW Coefficient of Variation 13.0 11.5-14.5 % Platelet Count 185 130-400 K/uL Mean Platelet Volume 9.9 7.4-10.4 fL Sodium Level 141 136-145 mmol/L Potassium Level 3.5 3.5-5.1 mmol/L Chloride Level 105 98-107 mmol/L Carbon Dioxide Level 29 21-32 mmol/L Anion Gap 7.0 3-11 mmol/L Blood Urea Nitrogen 12 7-18 mg/dl Creatinine 1.00 0.60-1.40 mg/dl Est Creatinine Clear Calc Drug Dose 116.8 ml/min Estimated GFR () 100.6 Estimated GFR (Non- 86.8 BUN/Creatinine Ratio 12.2 10-20 Random Glucose 107 70-99 mg/dl Calcium Level 8.3 8.5-10.1 mg/dl
[2016-10-10] MEDS ORDERED: SULF-183 PO (10:03)
[2016-10-10] MEDS ORDERED: VTMB12 PO (10:03)
--- NOTE | 2016-10-10 10:05 | Discharge Instructions ---
Discharge Instructions Admission Reason for Admission: Chest Pain, Wound Cellulitis Discharge Discharge Diagnosis / Problem: Cellulitis Toe Discharge Goals Goal(s): Decrease discomfort, Improve function, Increase independence, Improve disease control, Improve nutritional status, Learn about illness, Diagnostic testing, Therapeutic intervention Activity Recommendations Activity Limitations: resume your previous activity (As Tolerated.) Lifting Limitations: none Exercise/Sports Limitations: as tolerated Shower/Bathe: no limitations Driving or Machine Use: no limitations . Instructions / Follow-Up Instructions / Follow-Up 1.Take all your medications as directed. 2. Monitor your blood sugar regularly. 3. Try to follow dietary instructions strictly. 4. Follow up with Wound Clinic as directed. 5. take antibiotics with food and have yogurt at least once a day. Follow up with PCP within one week. PCP office will be contacting the patient as I could not get an appointment from scheduling staff. Follow up with Wound Clinic in the next 2-3 days. Current Hospital Diet Patient's current hospital diet: Diabetes Type 2 Diet Discharge Diet Recommended Diet: AHA Diet (Heart Healthy), Diabetes Type 2 Diet Pending Studies Studies pending at discharge: no Laboratory Results Hemoglobin A1c Test 10/08/16 05:33 Range/Units Estimated Average Glucose 183 mg/dl Hemoglobin A1c 8.0 H 4.5-5.6 % Medical Emergencies . Who to Call and When: Medical Emergencies: If at any time you feel your situation is an emergency, please call 911 immediately. . Non-Emergent Contact Non-Emergency issues call your: Primary Care Provider Call Non-Emergent contact if: temperature is above 101, wound has increased drainage, wound has increased redness, wound has increased pain . . "Provider Documentation" section prepared by Vernon Mora. VTE Core Measure Inpt VTE Proph given/why not?: Unfractionated heparin SQ
--- NOTE | 2016-10-10 10:10 | Discharge Summary ---
Discharge Summary Admission Date: Oct 07, 2016 at 11:39 Discharge Date: Oct 10, 2016 Discharge Disposition: Home Principal Diagnosis: Chest Pain (Resolved) Cellulitis Left Great Jamie caused by MSSA Low B12 level Secondary Diagnoses/Problems: Diabetes Hypertension History Anxiety Dyslipidemia Procedures: Stress Echocardiogram ---> Normal LEFT FOOT MIN 3 VIEWS ROUTINE IMPRESSION: Soft tissue swelling with an ulcer of the left great toe. No radiographic evidence of osteomyelitis. MRI left foot LEFT LOWER EXT NON JOINT COMBO IMPRESSION: 1.. Mild/moderate soft tissue cellulitis about the great toe and to a lesser extent remaining soft tissue structures of the foot 2. No evidence for osteomyelitis. 3. No evidence for drainable abscess or collection Vaccinations: NONE Consultations: Wound Care Pending Studies/Follow-Up: Needs regular follow up with Wound Clinic as well wound care physician Follow up BMP every week as he is on Bactrim Medication Reconciliation New Medications: Cyanocobalamin (Vitamin B-12) 500 Mcg Tab 500 MCG PO QAM, #100 TAB Sulfamethoxazole-Trimethoprim (Smz-Tmp Ds) 1 Tab Tab 1 TAB PO Q12, #26 TAB 0 Refills Continued Medications: Ascorbic Acid (Vitamin C) 1,000 Mg Tab 1000 MG PO DAILY Aspirin (Aspirin Ec) 81 Mg Tab 81 MG PO DAILY Atorvastatin (Lipitor) 10 Mg Tab 10 MG PO DAILY for 30 Days Cholecalciferol (Vitamin D) 2,000 Unit Tab 2000 INTER.UNIT PO DAILY Clonazepam (Klonopin) 1 Mg Tab 1 MG PO HS PRN, 0 Refills Empagliflozin (Jardiance) 25 Mg Tab 25 MG PO DAILY Fluoxetine Hcl (Pmdd) (Fluoxetine) 20 Mg Cap 20 MG PO QAM Insulin Glargine (Lantus) 100 Unit/Ml Inj 42 UNITS SC QAM, VIAL Insulin Glargine (Lantus) 100 Unit/Ml Inj 38 UNITS SC QPM, VIAL Lisinopril/Hctz (Prinzide 20-25MG) Tab 1 TAB PO QAM, 0 Refills Metformin Ext Rel (Glucophage Ext Rel) 500 Mg Tab 1000 MG PO BID, TAB Metoprolol Succinate (Metoprolol Succinate ER) 50 Mg Tabcr 50 MG PO BID Multivitamin (Multivitamin) Tab 1 TAB PO QAM, 0 Refills Admission Information HPI (per Admitting provider): This is a 51 y/o male with PMhx of Uncontrolled DM2, HTN, Dyslipidemia and other problems as outlined below who presents to the ED c/o worsening L great toe wound x 1 day. Pt reports that 1 week ago he noticed that the skin split on the bottom surface of his L great toe. He has been applying gauze to the area to prevent infection however last night he noticed clear drainage from the toe with spreading erythema. Pt was on abx in July for a wound on the L great toe that healed well per patient. This morning pt tried going to work however he developed central chest "pressure" that did not radiate anywhere. The pressure seemed to be worse with ambulation. Sxs were assoc with fatigue, exertional SOB and lightheadedness/dizziness. Pt has never had chest pain like that before. He has a +FmHx of Father with CO in his 50s and mother with CO in her 60s. Pt denies fever/chills, diaphoresis, palpitations, wheezing, abd pain, N/V, bowel or bladder issues, LE edema or calf pain. In the ED, pt is febrile with leukocytosis>14k. L foot xray is negative for osteo. CXR is negative. Pt is currently chest pain free and will be admitted for further evaluation and treatment. Physical Exam (per Admitting): General Appearance: WD/WN, no apparent distress, + pertinent finding (Pt is laying comfortably in bed ) Head: normocephalic, atraumatic Eyes: normal inspection ENT: hearing grossly normal Neck: supple Respiratory/Chest: chest non-tender, lungs clear, normal breath sounds, no respiratory distress Cardiovascular: regular rate, rhythm, no edema, no murmur Abdomen/GI: normal bowel sounds, non tender, soft Back: normal inspection Extremities/Musculoskelatal: normal inspection, no calf tenderness, no pedal edema Neurologic/Psych: alert, normal mood/affect, oriented x 3 Skin: warm/dry, + pertinent finding (open wound to plantar surface L great toe with clear drainage and surrounding erythema ) Physical Exam (per Admitting): Discharge Goals Goal(s): Decrease discomfort, Improve function, Increase independence, Improve disease control, Improve nutritional status, Learn about illness, Diagnostic testing, Therapeutic intervention Hospital Course DEEP WOUND CULTURE Final 10/09/16-1211 Organism 1 STAPHYLOCOCCUS AUREUS QUANITY MANY SENS SENSITIVITY TO FOLLOW +MIXWOUND PLUS LOW COUNTS OF PROBABLE SKIN ALBINO 1. STAPHYLOCOCCUS AUREUS Target Route Dose RX AB Cost M.I.C. IQ ------ ----- ------ -- ------ -------- - ------ TRIMET/SULFA S <=0.5/ 9.5 * OXACILLIN S 0.5 VANCOMYCIN S 2 ERYTHROMYCIN R >4 TETRACYCLINE S <=4 CLINDAMYCIN S <=0.5 DAPTOMYCIN S <=0.5 MRI left foot LEFT LOWER EXT NON JOINT COMBO CLINICAL HISTORY: Infection cellulitis. Osteomyelitis. TECHNIQUE: Multiaxial MRI acquisition combination COMPARISON STUDY: Routine films same date FINDINGS: Suboptimal exam due to patient motion. Soft tissue inflammatory change about the great toe and to a lesser extent remaining soft tissues of the foot. Moderate degenerative change. No well-defined evidence for bone marrow replacing process. No evidence specifically for osteomyelitis. No evidence for abscess or drainable collection. All major ligamentous structures are intact. IMPRESSION: 1.. Mild/moderate soft tissue cellulitis about the great toe and to a lesser extent remaining soft tissue structures of the foot 2. No evidence for osteomyelitis. 3. No evidence for drainable abscess or collection Chest Pain: Patient presented with 2 hours of central chest pressure assoc with exertional SOB. Chest pain free now and is hemodynamically stable.Risk factors include +FmHx, Uncontrolled DM 2, HTN, dyslipidemia -Serial Troponin are negative -Continue Aspirin -Stress Echocardiogram is normal. STRESS STUDY: Normal pharmacologic stress echocardiogram. No echocardiographic or ECG evidence of myocardial ischemia having achieved heart rate adequate for diagnostic purposes. Cellulitis Left Great Toe: Patient is febrile with leukocytosis >14k; POC lactic acid 1.45 -Left foot X-Ray & MRI are negative for osteomyelitis -Blood cultures are negative so far Wound culture growing MSSA so have changed to PO Bactrim DS twice a day for total 14 days. -Stopped vancomycin & Zosyn -Noted consult by Dr. Garza. Thanks for input. Low B12 Level: Started supplementation Type II Diabetes: HbA1c is 8.0. Not well controlled. -Holding Jardiance and metformin -Continue Lantus -Monitor BS and cover as per sliding scale. -Requested consult with coding educator. History Anxiety: Stable. -continue Prozac and Klonopin PRN Hypertension: BP has been stable. -Continue lisinopril-HCTZ and metoprolol -Monitor BP Dyslipidemia: Continue Statin DVT Prophylaxis: Sq Heparin. Code Status : FULL CODE Disposition: Discharge home later today. Follow up with PCP within one week. PCP office will be contacting the patient as I could not get an appointment from scheduling staff. Follow up with Wound Clinic in the next 2-3 days. Total time spent on discharge = 40 minutes This includes examination of the patient, discharge planning, medication reconciliation, and communication with other providers. Discharge Instructions Activity Recommendations Activity Limitations: resume your previous activity (As Tolerated.) Lifting Limitations: none Exercise/Sports Limitations: as tolerated Shower/Bathe: no limitations Driving or Machine Use: no limitations . Instructions / Follow-Up Instructions / Follow-Up 1.Take all your medications as directed. 2. Monitor your blood sugar regularly. 3. Try to follow dietary instructions strictly. 4. Follow up with Wound Clinic as directed. 5. take antibiotics with food and have yogurt at least once a day. Follow up with PCP within one week. PCP office will be contacting the patient as I could not get an appointment from scheduling staff. Follow up with Wound Clinic in the next 2-3 days. Additional Copies To Giorgi Bernal, [email or web address].
[2016-10-10 10:50] VITALS: BP 162/90; PULSE 64; TEMP 36.8; O2SAT 98
[2016-10-10] MEDS ORDERED: VANCOMYCIN TROUGH SCH (19:30)
[2016-10-11] MEDS ORDERED: CYANOCOBALAMIN 500 MCG TAB (VIT B-12) PO SCH (09:00)
[2016-10-30] MEDS ORDERED: CEPH500C2 PO (11:26)
[2016-11-27] MEDS ORDERED: CEPH500C PO (13:58)
== END 2016-10-10 11:40 | disposition home or self-care (01) | DRG 264 ==
LOC: ENRESERVTM → ENRESERVDT → C.EDB 07:12 → C.2T 11:39 → C.MS2W 10-08 19:37
PROVIDERS: ADMIT Hospitalist; ATTEND Emergency Medicine
PROC: 0JBR0ZZ Excision of Left Foot Subcutaneous Tissue and Fascia, Open Approach (ICD-10-PCS; principal; 2016-10-08)
DX: R07.89 Other chest pain (principal); R06.02 Shortness of breath; E11.628 Type 2 diabetes mellitus with other skin complications; L03.032 Cellulitis of left toe; B95.61 Methicillin susceptible Staphylococcus aureus infection as the cause of diseases classified elsewhere; E11.621 Type 2 diabetes mellitus with foot ulcer; L97.529 Non-pressure chronic ulcer of other part of left foot with unspecified severity; E11.65 Type 2 diabetes mellitus with hyperglycemia; E11.40 Type 2 diabetes mellitus with diabetic neuropathy, unspecified; I10 Essential (primary) hypertension; E78.5 Hyperlipidemia, unspecified; F41.9 Anxiety disorder, unspecified; E53.8 Deficiency of other specified B group vitamins; Z89.411 Acquired absence of right great toe; Z82.49 Family history of ischemic heart disease and other diseases of the circulatory system; Z79.4 Long term (current) use of insulin; Z79.82 Long term (current) use of aspirin; Z79.84 Long term (current) use of oral hypoglycemic drugs; Z79.899 Other long term (current) drug therapy

== ENCOUNTER 2017-01-20 21:27 | Emergency (ER) | payer OTHER ==
[~2017-01-20] VITALS: Ht 182.9 cm; Wt 117.9 kg
[~2017-01-20 21:27] MED LIST changes: -AMOX500C3 PO; -ASPCH81 PO; +ASPI81TA28 PO; +ATOR10TA82 PO; -ATOR10TA88 PO; -CHOL100010 PO; +CHOL20009 PO; -EMPA1TAB; +EMPA1TAB3 PO; -GLC/500 PO; +INSDGI SC; -INSUINJ4 SC; +METFTAB PO; -METO50TA16 PO; +TPRSR50 PO; +VTMB12 PO
[2017-01-20 21:30] VITALS: TEMP 36.7; Ht 182.9 cm; Wt 117.9 kg
[2017-01-20 21:58] LABS: BASO % 0.2 %; BASO ABS # 0.03 K/uL (0-0.2); COMPLETE YES; EOS % 1.4 %; HEMATOCRIT 46.5 % (42-52); IG% 0.3 %; LYMPH % 31.1 %; LYMPH ABS # 3.91 K/uL (1.2-3.4); MEAN CELL VOLUME 88.6 fL (80-100); MEAN CORPUSCULAR HGB CONC 36.1 g/dl (32-36); MEAN PLATELET VOLUME 9.9 fL (7.4-10.4); MONO % 12.1 %; NEUT % 54.9 %; PLATELET COUNT 207 K/uL (130-400); RED BLOOD COUNT 5.25 M/uL (4.7-6.1); WHITE BLOOD COUNT 12.59 K/uL (4.8-10.8)
[2017-01-20 22:05] LABS: BUN/CREATININE RATIO 14.1 (10-20); CREATININE 1.2 mg/dl (0.60-1.40); POTASSIUM 3.7 mmol/L (3.5-5.1)
[2017-01-20] MEDS ORDERED: MoRPHine SULFATE 10 MG/ML CARP/VIAL IV STA (22:08)
[2017-01-20] MEDS ORDERED: ONDANSETRON INJ 2 MG/ML 2 ML VIAL IV STA (22:08)
[2017-01-20] MEDS ORDERED: SODIUM CHLORIDE 0.9% 1000ML 1,000 ML IV STA (22:08)
[2017-01-20] MEDS ORDERED: DULA1INJ SQ (22:11)
[2017-01-20] MEDS ORDERED: MoRPHine SULFATE 2 MG/ML CARP ONE (22:11)
[2017-01-20] MEDS ORDERED: MoRPHine SULFATE 4 MG/ML 1 ML CARP\\VIAL ONE (22:11)
--- NOTE | 2017-01-20 22:13 | EMERGENCY ROOM VISIT NOTE ---
History Report prepared by Betzy: Sharifa Daniel Under the Supervision of: Dr. Jose Jauregui D.O. First contact with patient: 21:51 Chief Complaint: ABDOMINAL PAIN Stated Complaint: PAIN IN R SIDE OF STOMACH Nursing Triage Summary: patient c/o right sided abdominal pain radiating to flank along with diarrhea . History of Present Illness The patient is a 51 year old male who presents to the Emergency Room with complaints of worsening right flank pain starting yesterday afternoon. The pain starts in the back and wraps around to the right lower quadrant. He denies any activities that improve or worsen his pain. He also complains of nausea and had two vomiting episodes today. He started having diarrhea today. He also started having a rash today on his left leg. He denies any recent antibiotics. He denies any history of appendectomy, cholecystectomy, or kidney stones. Pt denies headache, change in vision, fevers, chest pain, shortness of breath, pain with urination, and melena. Source of History: patient Onset: yesterday afternoon Position: other (right flank) Timing: worsening Associated Symptoms: + diarrhea, + nausea, + rash, + vomiting, No SOB, No chest pain, No fevers, No headache Review of Systems See HPI for pertinent positives & negatives. A total of 10 systems reviewed and were otherwise negative. Past Medical & Surgical Medical Problems: (1) Anxiety (2) Chest pain (3) Diabetes mellitus type II, uncontrolled (4) Diabetic foot ulcer (5) Diabetic peripheral neuropathy associated with type 2 diabetes mellitus (6) Dyslipidemia (7) Great toe amputation status (8) HTN (hypertension) (9) Loss of sensation (10) Status post partial amputation of foot (11) Wound cellulitis Family History Cancer Diabetes mellitus FH: heart attack Gallbladder disease Heart disease Hypertension Social History Smoking Status: Never Smoker Alcohol Use: occasionally Drug Use: none Marital Status: , in relationship Housing Status: lives with family, lives with significant other Occupation Status: employed Current/Historical Medications Scheduled Ascorbic Acid (Vitamin C), 1,000 MG PO DAILY Aspirin (Aspirin Ec), 81 MG PO DAILY Atorvastatin (Lipitor), 10 MG PO DAILY Cholecalciferol (Vitamin D), 2,000 INTER.UNIT PO DAILY Clonazepam (Klonopin), 1 MG PO HS PRN Cyanocobalamin (Vitamin B-12), 500 MCG PO QAM Dulaglutide (Trulicity), 0.75 MG SQ WK Empagliflozin (Jardiance), 25 MG PO DAILY Fluoxetine Hcl (Pmdd) (Fluoxetine), 20 MG PO QAM Insulin Glargine (Lantus), 42 UNITS SC QAM Insulin Glargine (Lantus), 38 UNITS SC QPM Lisinopril/Hctz (Prinzide 20-25MG), 1 TAB PO QAM Metformin Ext Rel (Glucophage Ext Rel), 1,000 MG PO BID Metoprolol Succinate (Metoprolol Succinate ER), 50 MG PO BID Multivitamin (Multivitamin), 1 TAB PO QAM Tamsulosin Hcl (Flomax), 0.4 MG PO DAILY Scheduled PRN Ondansetron Hcl (Zofran), 4 MG PO TID PRN for Nausea Oxycodone Immediate Rel Tab (Roxicodone Ir), 1-2 TAB PO Q4H PRN for Severe Pain Allergies Coded Allergies: Peanut (Verified Allergy, Severe, ANAPHYLAXIS, 10/07/16) Physical Exam Vital Signs Date Time Temp Pulse Resp B/P Pulse Ox O2 Delivery O2 Flow Rate FiO2 01/21/17 00:06 91 18 168/97 97 Room Air 01/20/17 23:38 84 20 158/77 98 Room Air 01/20/17 22:51 86 18 172/100 98 01/20/17 21:30 36.7 86 16 180/99 96 Room Air Physical Exam GENERAL: Sitting up in bed, disheveled, in mild distress. EYE EXAM: normal conjunctiva, PERRL and EOM's grossly intact OROPHARYNX: no exudate, no erythema, lips, buccal mucosa, and tongue normal and mucous membranes are moist NECK: supple, no nuchal rigidity, no adenopathy, non-tender LUNGS: Clear to auscultation. Normal chest wall mechanics HEART: no murmurs, S1 normal and S2 normal ABDOMEN: abdomen soft, normo-active bowel sounds, no masses, no rebound or guarding. Mild tenderness in the right flank. BACK: Back is symmetrical on inspection and there is no deformity, no midline tenderness, no CVA tenderness. SKIN: no rashes and no bruising UPPER EXTREMITIES: upper extremities are grossly normal. LOWER EXTREMITIES: No pitting edema. NEURO EXAM: Normal sensorium, cranial nerves II-XII grossly intact, normal speech, no gross weakness of arms, no gross weakness of legs. Medical Decision & Procedures ER Provider Diagnostic Interpretation: CT:Per my review, radiologist interpretation. ABDOMEN AND PELVIS CT WITHOUT CONTRAST CT DOSE: 1823.58 mGy.cm HISTORY: Right flank pain. TECHNIQUE: Multiaxial CT images of the abdomen and pelvis were performed without contrast. COMPARISON STUDY: None. FINDINGS: There is a 5 mm stone within the lower pole of the right kidney. A 1.6 cm hypodense lesion within the lower pole the right kidney is incompletely characterized on this noncontrast study but favors a cyst. There is a 5 mm stone within the lower pole of the left kidney. A 1 cm hypodense lesion within the left kidney is incompletely characterized on this noncontrast study but also favors a cyst. There is right perinephric edema. Moderate right hydroureteronephrosis secondary to an obstructing 5 mm stone at the distal right ureter. This is adjacent to the ureterovesical junction. Normal bladder. A 4 mm subpleural nodule within the right lower lobe in image 24. A 3 mm subpleural nodule within the left lower lobe on image 23. A few scattered sclerotic foci within the pelvis are nonspecific but favor bone islands. Bilateral gynecomastia. Small fat-containing bilateral inguinal hernias. Multiple tiny gallstones. The unenhanced liver, spleen, adrenal glands, and pancreas are unremarkable. No retroperitoneal lymphadenopathy. Normal bladder. Suboptimal evaluation for bowel pathology due to the lack of intravenous and oral contrast. However, there is no definite bowel wall thickening or obstruction. Colonic diverticulosis. Normal appendix. IMPRESSION: 1. A 5 mm obstructing stone within the distal right ureter resulting in moderate right hydroureteronephrosis. 2. Bilateral nephrolithiasis. 3. Cholelithiasis. 4. Subcentimeter bilateral lower lobe nodules with the largest on the right measuring 4 mm. Please refer to the chart below for recommended follow-up. 5. Additional findings as described above. Please refer to below summary of Fleischner criteria recommendations for follow-up of incidental CT nodules (Angie Pro, Guidelines for management of small pulmonary nodules detected on CT scans: A statement from the Fleischner Society, Radiology 237: [phone].) SOLID NODULES Solitary nodule size: <6 mm * Low risk patients: no follow-up needed * high risk patients: optional CT at 12 months Solitary nodule size: 6-8 mm * Low risk patients: follow-up at 6-12 months, then consider further follow-up at 18-24 months * high risk patients: initial follow-up CT at 6-12 months and then at 18-24 months if no change Solitary nodule size: >8 mm * either low or high risk patients - consider follow-up CT at 3 months, and/or CT-PET, and/or biopsy Multiple nodules size: <6 mm * Low risk patients: no routine follow-up * high risk patients: optional CT at 12 months Multiple nodules size: 6-8 mm * Low risk patients: follow-up at 3-6 months, then consider further follow-up at 18-24 months * high risk patients: follow-up at 3-6 months, then at 18-24 months if no change Multiple nodules size: >8 mm * Low risk patients: follow-up at 3-6 months, then consider further follow-up at 18-24 months * high risk patients: follow-up at 3-6 months, then at 18-24 months if no change Note: newly detected indeterminate nodule in persons 35 years of age or older. * Low risk patients: minimal or absent history of smoking and/or other known risk factors * high risk patients: history of smoking or of other known risk factors (e.g. first degree relative with lung cancer, or exposure to asbestos, radon, uranium) * if a nodule up to 8 mm is partly solid or is ground glass further follow-up is required after 24 months to exclude possible slow growing adenocarcinoma (ROXI) SUBSOLID NODULES Solitary pure ground-glass nodule * nodule size <6 mm - no CT follow-up required * nodule size >=6 mm - follow-up CT at 6-12 months, then every 2 years until 5 years Solitary part-solid nodule * nodule size <6 mm - no CT follow-up required * nodule size >=6 mm - follow-up CT at 3-6 months. If unchanged, and solid component remains <6 mm, then annual follow-up for 5 years Multiple subsolid nodules * nodule size <6 mm - follow-up CT at 3-6 months, consider further follow-up at 2 and 4 years if stable * nodule size >=6 mm - follow-up CT at 3-6 months, subsequent management based on the most suspicious nodule(s) Electronically signed by: Osman Iqbal M.D. 01/20/2017 10:57 PM Dictated Date/Time: 01/20/2017 10:50 PM Laboratory Results 01/20/17 21:35 Red Blood Count 5.25, Mean Corpuscular Volume 88.6, Mean Corpuscular Hemoglobin 32.0, Mean Corpuscular Hemoglobin Concent 36.1, Mean Platelet Volume 9.9, Neutrophils (%) (Auto) 54.9, Lymphocytes (%) (Auto) 31.1, Monocytes (%) (Auto) 12.1, Eosinophils (%) (Auto) 1.4, Basophils (%) (Auto) 0.2, Neutrophils # (Auto ) 6.92, Lymphocytes # (Auto) 3.91, Monocytes # (Auto) 1.52, Eosinophils # (Auto ) 0.17, Basophils # (Auto) 0.03 01/20/17 21:35 Test 01/20/17 21:35 01/20/17 22:20 White Blood Count 12.59 K/uL (4.8-10.8) Red Blood Count 5.25 M/uL (4.7-6.1) Hemoglobin 16.8 g/dL (14.0-18.0) Hematocrit 46.5 % (42-52) Mean Corpuscular Volume 88.6 fL (80-100) Mean Corpuscular Hemoglobin 32.0 pg (25-34) Mean Corpuscular Hemoglobin Concent 36.1 g/dl (32-36) Platelet Count 207 K/uL (130-400) Mean Platelet Volume 9.9 fL (7.4-10.4) Neutrophils (%) (Auto) 54.9 % Lymphocytes (%) (Auto) 31.1 % Monocytes (%) (Auto) 12.1 % Eosinophils (%) (Auto) 1.4 % Basophils (%) (Auto) 0.2 % Neutrophils # (Auto) 6.92 K/uL (1.4-6.5) Lymphocytes # (Auto) 3.91 K/uL (1.2-3.4) Monocytes # (Auto) 1.52 K/uL (0.11-0.59) Eosinophils # (Auto) 0.17 K/uL (0-0.5) Basophils # (Auto) 0.03 K/uL (0-0.2) RDW Standard Deviation 44.0 fL (36.4-46.3) RDW Coefficient of Variation 13.5 % (11.5-14.5) Immature Granulocyte % (Auto) 0.3 % Immature Granulocyte # (Auto) 0.04 K/uL (0.00-0.02) Anion Gap 7.0 mmol/L (3-11) Est Creatinine Clear Calc Drug Dose 96.6 ml/min Estimated GFR () 80.7 Estimated GFR (Non- 69.6 BUN/Creatinine Ratio 14.1 (10-20) Calcium Level 9.3 mg/dl (8.5-10.1) Total Bilirubin 1.2 mg/dl (0.2-1) Direct Bilirubin 0.2 mg/dl (0-0.2) Aspartate Amino Transf (AST/SGOT) 16 U/L (15-37) Alanine Aminotransferase (ALT/SGPT) 27 U/L (12-78) Alkaline Phosphatase 75 U/L (45-117) Total Protein 7.8 gm/dl (6.4-8.2) Albumin 3.9 gm/dl (3.4-5.0) Lipase 172 U/L (73-393) Urine Color YELLOW Urine Appearance CLEAR (CLEAR) Urine pH 6.0 (4.5-7.5) Urine Specific [place] 1.037 (1.000-1.030) Urine Protein NEG (NEG) Urine Glucose (UA) 3+ (NEG) Urine Ketones NEG (NEG) Urine Occult Blood 3+ (NEG) Urine Nitrite NEG (NEG) Urine Bilirubin NEG (NEG) Urine Urobilinogen NEG (NEG) Urine Leukocyte Esterase NEG (NEG) Urine WBC (Auto) 1-5 /hpf (0-5) Urine RBC (Auto) >30 /hpf (0-4) Urine Hyaline Casts (Auto) 1-5 /lpf (0-5) Urine Epithelial Cells (Auto) 5-10 /lpf (0-5) Urine Bacteria (Auto) NEG (NEG) Laboratory results per my review. Medications Administered Medications (Trade) Dose Ordered Sig/Esther Route Start Time Stop Time Status Last Admin Dose Admin Ondansetron HCl 4 mg 4 mg NOW STAT IV 01/20/17 22:08 01/20/17 22:09 DC 01/20/17 22:17 4 MG Sodium Chloride (Nss 1000ml) 1,000 ml @ 999 mls/hr Q1H1M STAT IV 01/20/17 22:08 01/20/17 23:08 DC 01/20/17 22:18 999 MLS/HR Morphine Sulfate (MoRPHine SULFATE INJ) 2 mg STK-MED ONCE .ROUTE 01/20/17 22:11 01/20/17 22:12 DC 01/20/17 22:17 2 MG Morphine Sulfate (MoRPHine SULFATE INJ) 4 mg STK-MED ONCE .ROUTE 01/20/17 22:11 01/20/17 22:12 DC 01/20/17 22:17 4 MG Hydromorphone HCl (Dilaudid Inj) 0.5 mg NOW STAT IV 01/20/17 23:51 01/20/17 23:52 DC 01/20/17 23:56 0.5 MG Oxycodone HCl (Roxicodone Immediate Rel 5MG Home Pack) 1 homepack UD ONCE PO 01/21/17 00:00 01/21/17 00:01 DC 01/21/17 00:00 1 HOMEPACK ED Course ED COURSE: Vital signs were reviewed and showed hypertensive. The patients medical record was reviewed The above diagnostic studies were performed and reviewed. ED treatments and interventions as stated above. 2151: The patient was evaluated in room C09. A complete history and physical examination was performed. 2208: Sodium Chloride 1000 ml @ 999 mls/hr IV, Zofran Inj 4 mg IV 2351: Dilaudid Inj 0.5 mg IV 0000: Oxycodone HCl 1 homepack PO. Upon reevaluation, the patient is resting comfortably.I discussed my findings with the patient and he understands and agrees with the treatment plan. Based on the patients age, coexisting illnesses, exam and lab findings the decision to treat as an outpatient was made. The patient remained stable while under my care. The patient appeared well at the time of discharge. Medical Decision Differential diagnoses includes but is not limited to gastritis, peptic ulcer disease, GERD, gallbladder disease, pancreatitis, small bowel obstruction, acute coronary syndrome, pericarditis, ischemic bowel, irritable bowel disease, irritable bowel syndrome, appendicitis, diverticulitis, malignancy, hernia, urinary tract infection, torsion, perforation, trauma, infectious. Patient is a 51-year-old male who presents the ER for right flank pain which started yesterday. He notes that this has been worsening. He does admit to nausea vomiting. Labs show a mild leukocytosis of 12,000. BP along with LFTs, bilirubin and lipase was unremarkable. UA had hematuria present. CT noncontrast shows a 5 mm stone with [id number] hydronephrosis. He was given IV narcotics and Zofran with improvement of his pain. He was discharged follow-up with urology and his PCP. CT of the abdomen did show 2 solid pulmonary nodules which are less than 5 mm which does not require follow-up per radiology chart. Discussed with Pt concerning signs and symptoms to watch out for. Pt was instructed to follow up with their PCP and discussed with the patient their option to return to the ED at anytime for persistent or worsening symptoms. The appropriate anticipatory guidance and out-patient management, including indications for return to the emergency department, were explained at length to the patient and understood. [place] Drug Monitoring Program Search Results: patient reviewed within database, no issues identified Impression Primary Impression: Renal colic Additional Impressions: Hydronephrosis Pulmonary nodule Scribe Attestation The scribe's documentation has been prepared under my direction and personally reviewed by me in its entirety. I confirm that the note above accurately reflects all work, treatment, procedures, and medical decision making performed by me. Departure Information Dispostion Home / Self-Care Prescriptions Ondansetron Hcl (ZOFRAN) 4 Mg Tab 4 MG PO TID Y for Nausea, #30 TAB Prov: Jose Jauregui, DO 01/21/17 Tamsulosin Hcl (FLOMAX) 0.4 Mg Cap 0.4 MG PO DAILY, #10 CAP Prov: Jose Jauregui, DO 01/21/17 Oxycodone Immediate Rel Tab (ROXICODONE IR) 5 Mg Tab 1-2 TAB PO Q4H Y for Severe Pain, #24 TAB Prov: Jose Jauregui, DO 01/21/17 Referrals Giorgi Bernal D.OGosia (PCP) Gisele Heath MD Forms Call Back Authorization, HOME CARE DOCUMENTATION FORM, IMPORTANT VISIT INFORMATION Patient Instructions ED Stone Renal W Colic, My [facility] Additional Instructions Please follow up with your primary care doctor with in the next 24 hours. Any worsening of your symptoms, please return to the ED immediately. This includes fevers greater than 100.4, persistent nausea vomiting, worsening pain, passing out, or any other concerning signs or symptoms from your standpoint. Please follow up with urology as listed below. You were given medications during this visit that will inhibit your ability to drive, operate machinery and work. Please do NOT drive, operate machinery or work for the next 12hrs. You were also given a prescription for a narcotic/oxy ir. While taking this medication you should also not drive, operate machinery and or work. Problem Qualifiers Additional Impressions: Hydronephrosis Hydronephrosis type: with renal calculous obstruction Qualified Codes: N13.2 - Hydronephrosis with renal and ureteral calculous obstruction
[2017-01-20 22:18] LABS: CALCIUM 9.3 mg/dl (8.5-10.1)
[2017-01-20 22:32] LABS: URINE APPEARANCE CLEAR (CLEAR); URINE BILIRUBIN NEG (NEG); URINE COLOR YELLOW; URINE NITRITE NEG (NEG); URINE SPECIFIC GRAVITY 1.037 (1.000-1.030); UROBILINOGEN NEG (NEG); ZZUR CULT IF INDIC CLEAN CATCH NO
[2017-01-20 22:37] LABS: MANUAL MICROSCOPIC REQUIRED? NO; REVIEW REQ? NO
--- NOTE | 2017-01-20 22:59 | DIAGNOSTIC IMAGING REPORT ---
ABDOMEN AND PELVIS CT WITHOUT CONTRAST CT DOSE: 1823.58 mGy.cm HISTORY: Right flank pain. TECHNIQUE: Multiaxial CT images of the abdomen and pelvis were performed without contrast. COMPARISON STUDY: None. FINDINGS: There is a 5 mm stone within the lower pole of the right kidney. A 1.6 cm hypodense lesion within the lower pole the right kidney is incompletely characterized on this noncontrast study but favors a cyst. There is a 5 mm stone within the lower pole of the left kidney. A 1 cm hypodense lesion within the left kidney is incompletely characterized on this noncontrast study but also favors a cyst. There is right perinephric edema. Moderate right hydroureteronephrosis secondary to an obstructing 5 mm stone at the distal right ureter. This is adjacent to the ureterovesical junction. Normal bladder. A 4 mm subpleural nodule within the right lower lobe in image 24. A 3 mm subpleural nodule within the left lower lobe on image 23. A few scattered sclerotic foci within the pelvis are nonspecific but favor bone islands. Bilateral gynecomastia. Small fat-containing bilateral inguinal hernias. Multiple tiny gallstones. The unenhanced liver, spleen, adrenal glands, and pancreas are unremarkable. No retroperitoneal lymphadenopathy. Normal bladder. Suboptimal evaluation for bowel pathology due to the lack of intravenous and oral contrast. However, there is no definite bowel wall thickening or obstruction. Colonic diverticulosis. Normal appendix. IMPRESSION: 1. A 5 mm obstructing stone within the distal right ureter resulting in moderate right hydroureteronephrosis. 2. Bilateral nephrolithiasis. 3. Cholelithiasis. 4. Subcentimeter bilateral lower lobe nodules with the largest on the right measuring 4 mm. Please refer to the chart below for recommended follow-up. 5. Additional findings as described above. Please refer to below summary of Fleischner criteria recommendations for follow-up of incidental CT nodules (Angie Pro, Guidelines for management of small pulmonary nodules detected on CT scans: A statement from the Fleischner Society, Radiology 237: [phone].) SOLID NODULES Solitary nodule size: <6 mm * Low risk patients: no follow-up needed * high risk patients: optional CT at 12 months Solitary nodule size: 6-8 mm * Low risk patients: follow-up at 6-12 months, then consider further follow-up at 18-24 months * high risk patients: initial follow-up CT at 6-12 months and then at 18-24 months if no change Solitary nodule size: >8 mm * either low or high risk patients - consider follow-up CT at 3 months, and/or CT-PET, and/or biopsy Multiple nodules size: <6 mm * Low risk patients: no routine follow-up * high risk patients: optional CT at 12 months Multiple nodules size: 6-8 mm * Low risk patients: follow-up at 3-6 months, then consider further follow-up at 18-24 months * high risk patients: follow-up at 3-6 months, then at 18-24 months if no change Multiple nodules size: >8 mm * Low risk patients: follow-up at 3-6 months, then consider further follow-up at 18-24 months * high risk patients: follow-up at 3-6 months, then at 18-24 months if no change Note: newly detected indeterminate nodule in persons 35 years of age or older. * Low risk patients: minimal or absent history of smoking and/or other known risk factors * high risk patients: history of smoking or of other known risk factors (e.g. first degree relative with lung cancer, or exposure to asbestos, radon, uranium) * if a nodule up to 8 mm is partly solid or is ground glass further follow-up is required after 24 months to exclude possible slow growing adenocarcinoma (ROXI) SUBSOLID NODULES Solitary pure ground-glass nodule * nodule size <6 mm - no CT follow-up required * nodule size >=6 mm - follow-up CT at 6-12 months, then every 2 years until 5 years Solitary part-solid nodule * nodule size <6 mm - no CT follow-up required * nodule size >=6 mm - follow-up CT at 3-6 months. If unchanged, and solid component remains <6 mm, then annual follow-up for 5 years Multiple subsolid nodules * nodule size <6 mm - follow-up CT at 3-6 months, consider further follow-up at 2 and 4 years if stable * nodule size >=6 mm - follow-up CT at 3-6 months, subsequent management based on the most suspicious nodule(s) Electronically signed by: Osman Iqbal M.D. 01/20/2017 10:57 PM Dictated Date/Time: 01/20/2017 10:50 PM
[2017-01-20] MEDS ORDERED: HYDROmorphone INJ 0.5 MG/0.5 ML SYR IV STA (23:51)
[2017-01-21] MEDS ORDERED: OXYCODONE IR HOME PACK PO ONE
[2017-01-21] MEDS ORDERED: OXYC1TAB3 PO (00:02)
[2017-01-21] MEDS ORDERED: TAMS0.4C38 PO (00:02)
[2017-01-21] MEDS ORDERED: ONDA4TAB46 PO (00:02)
[2017-01-21 00:06] VITALS: BP 168/97; PULSE 91; O2SAT 97
== END 2017-01-21 00:10 | disposition home or self-care (01) ==
LOC: C.EDB 21:28 → C.EDC 01-21 00:10
DX: N13.2 Hydronephrosis with renal and ureteral calculous obstruction (principal); F41.9 Anxiety disorder, unspecified; E11.43 Type 2 diabetes mellitus with diabetic autonomic (poly)neuropathy; E78.5 Hyperlipidemia, unspecified; Z89.419 Acquired absence of unspecified great toe; Z89.439 Acquired absence of unspecified foot; I10 Essential (primary) hypertension; Z80.9 Family history of malignant neoplasm, unspecified; Z83.3 Family history of diabetes mellitus; Z82.49 Family history of ischemic heart disease and other diseases of the circulatory system; Z79.82 Long term (current) use of aspirin; Z79.4 Long term (current) use of insulin; Z79.899 Other long term (current) drug therapy; R91.8 Other nonspecific abnormal finding of lung field